=== PATIENT | male | born 1940 | race Caucasian/White ===

== ENCOUNTER 2019-03-12 12:49 | Inpatient (IN) | payer MEDICAID ==
[2019-03-12 12:51] VITALS: BMI 23.6
--- NOTE | 2019-03-12 13:50 | ED PDOC ---
Arrival/HPI - General Chief Complaint: Abdominal Pain Historian: Spouse () - History of Present Illness Narrative History of Present Illness (Text): 03/12/19 13:56 A 78 year old male, whose past medical history includes CVA (right-side paralysis), who is accompanied by his (translates for patient), presents to the emergency department complaining of lower abdominal pain, difficulty urinating, and constipation for 2 days. Per , patient's last bowel movement was yesterday morning. states abdominal pain began around the same time, and mentions he has never had pain like this before. Patient has currently been taking Tylenol for the pain. Also, notes patient has been taking hypertension and anti-seizure medications, and was prescribed Theophylline in [place] and has been taking it. Patient, however, has no history of asthma. Denies patient of any confusion/AMS, chest pain, shortness of breath, or any other complaints at this time. PMD: Dr. Lamin Domínguez Past Medical History - Provider Review Nursing Documentation Reviewed: Yes - Infectious Disease Hx of Infectious Diseases: None - Cardiac Hx Cardiac Disorders: Yes Hx Hypertension: Yes - Pulmonary Hx Respiratory Disorders: No - Neurological HX Cerebrovascular Accident: Yes (10 yrs ago) - HEENT Hx HEENT Disorder: No - Renal Hx Renal Disorder: No - Endocrine/Metabolic Hx Endocrine Disorders: No - Hematological/Oncological Hx Blood Disorders: No - Integumentary Hx Dermatological Disorder: No - Musculoskeletal/Rheumatological Hx Musculoskeletal Disorders: No - Gastrointestinal Hx Gastrointestinal Disorders: No - Genitourinary/Gynecological Hx Genitourinary Disorders: No - Psychiatric Hx Psychophysiologic Disorder: No Hx Substance Use: No - Anesthesia Hx Anesthesia: No Hx Anesthesia Reactions: No Hx Malignant Hyperthermia: No Family/Social History - Physician Review Nursing Documentation Reviewed: Yes Family/Social History: No Known Family HX Smoking Status: Never Smoked Hx Alcohol Use: No Hx Substance Use: No Allergies/Home Meds Allergies/Adverse Reactions: Allergies No Known Allergies Allergy (Verified 03/12/19 12:51) Home Medications: Home Meds Medication Instructions Recorded Confirmed Unobtainable 03/12/19 03/12/19 Review of Systems - Physician Review All systems were reviewed & negative as marked: Yes - Review of Systems Respiratory: absent: SOB Cardiovascular: absent: Chest Pain Gastrointestinal: Abdominal Pain (lower region), Constipation, Other (difficulty urinating) Physical Exam Vital Signs Reviewed: Yes Vital Signs Temp Pulse Resp BP Pulse Ox 03/12/19 13:29 98.0 F 79 19 96 03/12/19 12:50 98.1 F 82 18 100/45 L 97 Temperature: Afebrile Blood Pressure: Normal Pulse: Regular Respiratory Rate: Normal Appearance: Positive for: Uncomfortable Pain Distress: None Mental Status: Positive for: Alert and Oriented X 3 - Systems Exam Abdomen: Present: Distention, Other (palpable pain to lower region) Rectal: Present: Other (negative hemocult) Medical Decision Making ED Course and Treatment: 03/12/19 13:58 Impression: 78 year male with lower abdominal pain, difficulty urinating, and constipation. Plan: -- EKG -- Abd/Pelvis CT -- Chest X-ray -- Pepcid -- Citrate -- Reglan -- Labs -- Urine Culture -- Urinalysis -- Reassess and disposition Progress Notes: - RAD Interpretation Narrative RAD Interpretations (Text): 03/12/2019 13:45 Chest X-ray IMPRESSION: Mild cardiomegaly and moderate vascular congestion. Dictator: Boo Herrera MD Radiology Orders: 03/12/19 13:33 CHEST PORTABLE [RAD] Stat - EKG Interpretation EKG Interpretation (Text): 03/12/19 13:44 EKG: Ordered, reviewed, and independently interpreted the EKG. Rate : 84 BPM Rhythm : NSR Interpretation : Right Bundle Branch Block, ST depression in V4-V5. Comparison : No previous EKG for comparison. - Medication Orders Current Medication Orders: Discontinued Medications Famotidine (Pepcid) 20 mg IVP STAT STA Stop: 03/12/19 13:33 Metoclopramide HCl (Reglan) 10 mg IVP STAT STA Stop: 03/12/19 13:33 - Scribe Statement The provider has reviewed the documentation as recorded by the Agnieszka Blanton Provider Scribe Attestation: All medical record entries made by the Scribe were at my direction and personally dictated by me. I have reviewed the chart and agree that the record accurately reflects my personal performance of the history, physical exam, medical decision making, and the department course for this patient. I have also personally directed, reviewed, and agree with the discharge instructions and disposition. Disposition/Present on Arrival - Present on Arrival History of DVT/PE: No History of Uncontrolled Diabetes: No Urinary Catheter: No History of Decub. Ulcer: No History Surgical Site Infection Following: None - Disposition
[2019-03-12] MEDS ORDERED: Magnesium Citrate Oral SOL (300 ml) PO ONE (13:53)
[2019-03-12 13:55] LABS: BASO # 0.01 K/mm3 (0.0-2.0); BASO % 0.1 % (0.0-3.0); LYMPH # 0.7 (1.2-3.4); LYMPH % 5.9 % (22.0-35.0); MEAN CELL VOLUME 72.9 fl (80.0-105.0); MEAN CORPUSCULAR HEMOGLOBIN 20.2 pg (25.0-35.0); MEAN CORPUSCULAR HGB CONC 27.7 g/dl (31.0-37.0); MEAN PLATELET VOLUME 9.2 fl (7.0-11.0); MONO # 0.6 (0.1-0.6); MONO % 5.1 % (1.0-6.0); RBC 2.58 10^6/uL (3.5-6.1); RED CELL DISTRIBUTION WIDTH 19.3 % (11.5-14.5); WHITE BLOOD COUNT 12.1 10^3/uL (4.5-11.0)
[2019-03-12 14:00] LABS: HEMOGLOBIN 5.2 g/dL (14.0-18.0)
[2019-03-12 14:04] LABS: ALB/GLOB RATIO 1.2 (1.1-1.8); ALBUMIN 4.2 g/dL (3.0-4.8); ALT/SGPT 9 U/L (7-56); AMYLASE 41 U/L (35-125); AST/SGOT 22 U/L (17-59); BLOOD UREA NITROGEN 12 mg/dL (7-21); GFR NON-AFRICAN AMERICAN > 60; INR 1.21; LIPASE 112 U/L (23-300); PARTIAL THROMBOPLASTIN TIME 26.2 Seconds (26.9-38.3); PROTHROMBIN TIME 13.4 SECONDS (9.4-12.5)
--- NOTE | 2019-03-12 14:12 | RAD ---
Date of service: 03/12/2019 HISTORY: abdominal pain COMPARISON: No prior. TECHNIQUE: 1 view obtained. FINDINGS: LUNGS: No active pulmonary disease. PLEURA: No significant pleural effusion identified, no pneumothorax apparent. CARDIOVASCULAR: No aortic atherosclerotic calcification present. Mild cardiomegaly moderate vascular congestion OSSEOUS STRUCTURES: No significant abnormalities. VISUALIZED UPPER ABDOMEN: Normal. OTHER FINDINGS: None. IMPRESSION: Mild cardiomegaly and moderate vascular congestion
[2019-03-12] MEDS ORDERED: Sodium Chloride 0.9% 1,000 ML IV STA (14:17)
[2019-03-12] MEDS ORDERED: Iohexol 350 MG/100 ML VIAL ONE (14:41)
[2019-03-12 14:42] LABS: URINE APPEARANCE CLEAR (CLEAR); URINE BILIRUBIN NEGATIVE (NEGATIVE); URINE BLOOD NEGATIVE (NEGATIVE); URINE COLOR YELLOW (YELLOW); URINE GLUCOSE (UA) NEGATIVE (NEGATIVE); URINE LEUKOCYTE ESTERASE NEGATIVE Leu/uL (NEGATIVE); URINE PROTEIN NEGATIVE mg/dL (<30 mg/dL); URINE UROBILINOGEN 0.2 E.U./dL (<1 E.U./dL)
[2019-03-12] MEDS: Albuterol-Ipratrop 3 mg / 0.5 (3 ml) UD IH SCH ×3 (15:01→15:45)
[2019-03-12] MEDS ORDERED: Azithromycin 500MG/NS 250ml 500 MG/250 ML BAG IVPB STA (15:11)
[2019-03-12] MEDS ORDERED: cefTRIAXone 1 gm 1 GM/100 ML BAG IVPB STA (15:11)
--- NOTE | 2019-03-12 16:49 | CT ---
Date of service: 03/12/2019 PROCEDURE: CT Abdomen and Pelvis with contrast HISTORY: abdominal pain COMPARISON: None. TECHNIQUE: Contrast dose: 100 cc of Omni 350 Radiation dose: Total exam DLP = 716.39 mGy-cm. This CT exam was performed using one or more of the following dose reduction techniques: Automated exposure control, adjustment of the mA and/or kV according to patient size, and/or use of iterative reconstruction technique. FINDINGS: LOWER THORAX: Small pleural effusions LIVER: There is an irregular hypodense lesion in the lateral segment of the left lobe of the liver along the lateral edge. This measures 29 x 35 mm in size. This could represent a hemangioma. Clinical correlation is suggested regarding history of a primary malignancy. Follow-up is recommended GALLBLADDER AND BILE DUCTS: Unremarkable. PANCREAS: Unremarkable. No gross lesion or ductal dilatation. SPLEEN: Unremarkable. ADRENALS: Unremarkable. No mass. KIDNEYS AND URETERS: Unremarkable. No hydronephrosis. No solid mass. VASCULATURE: Unremarkable. No aortic aneurysm. No aortic atherosclerotic calcification or mural plaque present. BOWEL: Bilateral inguinal hernias are seen. The right-sided inguinal hernia contains a loop of small bowel. This appears to be producing partial obstruction. Mildly dilated fluid-filled loops of small bowel are seen proximal to this hernia. The left-sided hernia contains a loop of the sigmoid colon with no evidence of obstruction. Each hernia measures approximately 5 cm in diameter APPENDIX: Normal appendix. PERITONEUM: Unremarkable. No free fluid. No free air. LYMPH NODES: Unremarkable. No enlarged lymph nodes. BLADDER: Unremarkable. REPRODUCTIVE: Unremarkable. BONES: No acute fracture. OTHER FINDINGS: None. IMPRESSION: Bilateral inguinal hernias are seen. The right-sided inguinal hernia contains a loop of small bowel. This appears to be producing partial obstruction. Mildly dilated fluid-filled loops of small bowel are seen proximal to this hernia. The left-sided hernia contains a loop of the sigmoid colon with no evidence of obstruction. Each hernia measures approximately 5 cm in diameter There is an irregular hypodense lesion in the lateral segment of the left lobe of the liver along the lateral edge. This measures 29 x 35 mm in size. This could represent a hemangioma. Clinical correlation is suggested regarding history of a primary malignancy. Follow-up is recommended
--- NOTE | 2019-03-12 17:37 | CP.PCM.HP ---
History of Present Illness - History of Present Illness History of Present Illness: Joey Maldonado DO, PGY-2: HPI for Dr. 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 He is accompanied by his daughter in law who provides most of the chief compla int and past medical history. The pain is in the right side of his abdomen is intermittent, scaled 7/10 in severity, crampy in nature, not associated with vomiting, nausea, or diarrhea; ongoing since his constipation. The patient denied having any fever, chills, shortness of breath, exposure to any sick contact. Also, he has had difficulty urinating in the past 24 hours. He denies dysuria and felt reliefed when straight cathed in the ED. He does report having bloody bowel movements 2 weeks ago that resolved spontaneously. He denied feeling any palpitations, shortness or breath, or malaise. He can only walk with the assistance of one person + walker/cane. He lives with his daughter and son that that reside in [place] and [place], respectively. Otherwise, a 12 point ROS is negative except as mentioned above. PMH: Hemorrhagic stroke in 2004 with right sided hemiplegia, hypertension, former smoker and former drinker PSH: Denies Allergies: Denies Social: 50 pack year history of smoker, drank heavily in the past- unable to quantify, needs assistance for ADLs PMD: Dr Lamin Domínguez Present on Admission - Present on Admission Any Indicators Present on Admission: No Review of Systems - Review of Systems All systems: reviewed and no additional remarkable complaints except (as per HPI) Past Patient History - Infectious Disease Hx of Infectious Diseases: None - Past Social History Smoking Status: Never Smoked - CARDIAC Hx Cardiac Disorders: Yes Hx Hypertension: Yes - PULMONARY Hx Respiratory Disorders: No - NEUROLOGICAL HX Cerebrovascular Accident: Yes (10 yrs ago) - HEENT Hx HEENT Problems: No - RENAL Hx Chronic Kidney Disease: No - ENDOCRINE/METABOLIC Hx Endocrine Disorders: No - HEMATOLOGICAL/ONCOLOGICAL Hx Blood Disorders: No - INTEGUMENTARY Hx Dermatological Problems: No - MUSCULOSKELETAL/RHEUMATOLOGICAL Hx Musculoskeletal Disorders: No - GASTROINTESTINAL Hx Gastrointestinal Disorders: No - GENITOURINARY/GYNECOLOGICAL Hx Genitourinary Disorders: No - PSYCHIATRIC Hx Psychophysiologic Disorder: No Hx Substance Use: No - SURGICAL HISTORY Hx Surgeries: No - ANESTHESIA Hx Anesthesia: No Hx Anesthesia Reactions: No Hx Malignant Hyperthermia: No Meds Allergies/Adverse Reactions: Allergies Allergy/AdvReac Type Severity Reaction Status Date / Time No Known Allergies Allergy Verified 03/12/19 12:51 Physical Exam - Constitutional Appears: Non-toxic, No Acute Distress - Head Exam Head Exam: ATRAUMATIC, NORMOCEPHALIC - Eye Exam Eye Exam: EOMI Additional comments: conjuctival pallor - ENT Exam ENT Exam: Mucous Membranes Moist - Respiratory Exam Respiratory Exam: Clear to Auscultation Bilateral, NORMAL BREATHING PATTERN. absent: Accessory Muscle Use Additional comments: coarse breath sounds bilaterally - Cardiovascular Exam Cardiovascular Exam: RRR, +S1, +S2 - GI/Abdominal Exam GI & Abdominal Exam: absent: Rebound, Rigid Additional comments: right abdomen protruding, bilateral inguinal hernia noted - Extremities Exam Extremities exam: Positive for: normal inspection. Negative for: calf tenderness - Neurological Exam Additional comments: right hemiplegia, left foot with foot drop brace - Psychiatric Exam Psychiatric exam: Normal Affect, Normal Mood - Skin Skin Exam: Dry, Intact, Normal Color, Warm Results - Vital Signs Recent Vital Signs: Last Vital Signs Temp 98.0 F 03/12/19 13:29 Pulse 87 03/12/19 17:10 Resp 18 03/12/19 17:10 BP 102/54 L 03/12/19 17:10 Pulse Ox 99 03/12/19 17:10 - Labs Result Diagrams: 03/12/19 13:50 03/12/19 13:50 Labs: Laboratory Results - last 24 hr 03/12/19 03/12/19 03/12/19 13:50 13:50 13:50 WBC 12.1 H RBC 2.58 L Hgb 5.2 L* Hct 18.8 L* MCV 72.9 L MCH 20.2 L MCHC 27.7 L RDW 19.3 H Plt Count 327 MPV 9.2 Neut % (Auto) 88.9 H Lymph % (Auto) 5.9 L Dare % (Auto) 5.1 Eos % (Auto) 0.0 L Baso % (Auto) 0.1 Lymph # (Auto) 0.7 L Dare # (Auto) 0.6 Eos # (Auto) 0.0 Baso # (Auto) 0.01 Absolute Neuts (auto) 10.79 H PT 13.4 H INR 1.21 APTT 26.2 L Sodium 132 Potassium 4.0 Chloride 99 Carbon Dioxide 17 L Anion Gap 21 H BUN 12 Creatinine 0.7 L Est GFR ( Amer) > 60 Est GFR (Non-Af Amer) > 60 Random Glucose 133 H Calcium 9.0 Total Bilirubin 0.3 AST 22 ALT 9 Alkaline Phosphatase 81 NT-Pro-B Natriuret Pep Total Protein 7.6 Albumin 4.2 Globulin 3.5 Albumin/Globulin Ratio 1.2 Amylase 41 Lipase 112 Urine Color Urine Appearance Urine pH Ur Specific [place] Urine Protein Urine Glucose (UA) Urine Ketones Urine Blood Urine Nitrate Urine Bilirubin Urine Urobilinogen Ur Leukocyte Esterase Blood Type Blood Type Confirm Antibody Screen Crossmatch BBK History Checked 03/12/19 03/12/19 03/12/19 13:50 14:30 14:30 WBC RBC Hgb Hct MCV MCH MCHC RDW Plt Count MPV Neut % (Auto) Lymph % (Auto) Dare % (Auto) Eos % (Auto) Baso % (Auto) Lymph # (Auto) Dare # (Auto) Eos # (Auto) Baso # (Auto) Absolute Neuts (auto) PT INR APTT Sodium Potassium Chloride Carbon Dioxide Anion Gap BUN Creatinine Est GFR ( Amer) Est GFR (Non-Af Amer) Random Glucose Calcium Total Bilirubin AST ALT Alkaline Phosphatase NT-Pro-B Natriuret Pep 6360 H Total Protein Albumin Globulin Albumin/Globulin Ratio Amylase Lipase Urine Color Yellow Urine Appearance Clear Urine pH 6.0 Ur Specific [place] 1.025 Urine Protein Negative Urine Glucose (UA) Negative Urine Ketones Negative Urine Blood Negative Urine Nitrate Negative Urine Bilirubin Negative Urine Urobilinogen 0.2 Ur Leukocyte Esterase Negative Blood Type A POSITIVE Blood Type Confirm Antibody Screen Negative Crossmatch See Detail BBK History Checked No verified bt 03/12/19 15:20 WBC RBC Hgb Hct MCV MCH MCHC RDW Plt Count MPV Neut % (Auto) Lymph % (Auto) Dare % (Auto) Eos % (Auto) Baso % (Auto) Lymph # (Auto) Dare # (Auto) Eos # (Auto) Baso # (Auto) Absolute Neuts (auto) PT INR APTT Sodium Potassium Chloride Carbon Dioxide Anion Gap BUN Creatinine Est GFR ( Amer) Est GFR (Non-Af Amer) Random Glucose Calcium Total Bilirubin AST ALT Alkaline Phosphatase NT-Pro-B Natriuret Pep Total Protein Albumin Globulin Albumin/Globulin Ratio Amylase Lipase Urine Color Urine Appearance Urine pH Ur Specific [place] Urine Protein Urine Glucose (UA) Urine Ketones Urine Blood Urine Nitrate Urine Bilirubin Urine Urobilinogen Ur Leukocyte Esterase Blood Type Blood Type Confirm A POSITIVE Antibody Screen Crossmatch BBK History Checked Assessment & Plan - Assessment and Plan (Free Text) Assessment: 78 year old male with a past medical history of hypertension, hemorrhagic stroke with right sided hemiplegia, and possible CHF who presents with right sided abdominal and right thigh pain in the setting of constipation. 1) Abdominal pain secondary to partial obstruction - CT of abdominal and pelvis reports bilateral inguinal hernias are seen. The right-sided inguinal hernia contains a loop of small bowel. This appears to be producing partial obstruction. Mildly dilated fluid-filled loops of small bowel are seen proximal to this hernia. The left-sided hernia contains a loop of the sigmoid colon with no evidence of obstruction. Each hernia measures approximately 5 cm in diameter. There is an irregular hypodense lesion in the lateral segment of the left lobe of the liver along the lateral edge. This measures 29 x 35 mm in size. This could represent a hemangioma. Clinical correlation is suggested regarding history of a primary malignancy. Follow-up is recommended - General Surgery Consulted - Keep patient NPO except for meds - Hernias were reducible 2) Recent LGIB with anemia - Hemoglobin 5.2 - Transfuse 2 units and repeat CBC - GI consulted, Dr. Guevara 3) CHF exacerbation - Elevated BNP and chest X-ray showing venous congestion and cardiomegaly - Dr. Espinosa consulted - Echocardiogram ordered - Nebivolol 5 mg (home medication) 4) History of Seizures - Continue with Phenytoin 100 mg Daily (home medication) 5) Hypertension - Amlodipine 10 mg 6) DVT/GI prophylaxis - SCD - Protonix 40 mg IVP daily Case was reviewed and discussed with attending physician, Dr. Armstrong
--- NOTE | 2019-03-12 17:42 | CARD ---
APPROVED REPORT Date of service: 03/12/2019 EKG Measurement Heart [id number] <Conclusion> Normal sinus rhythm Right bundle branch block Left anterior fascicular block Bifascicular block T wave abnormality, consider lateral ischemia Abnormal ECG
--- NOTE | 2019-03-12 18:08 | CP.PCM.CON ---
History of Present Illness - History of Present Illness History of Present Illness: General surgery consult note for Dr. Etta Robledo PGY-2 Pt seen/examined at bedside in ED, history as per daughter in law 78yo Shorty speaking male w/PMH sig for CVA w/R sided hemiparesis and HTN consulted for abdominal pain, constipation, and partial obstruction. Per daughter in law, patient has been constipated for 3 days prior to evaluation, is having small, hard, non bloody BMs. Admits to prior bloody BMs 2 weeks prior to evaluation that lasted for 2 days, which has since resolved. Denies flatus x 1 day. Reports moderate R sided abdominal pain x 1 day prior to evaluation that radiated down his leg, pt now reporting that abdominal pain as resolved. Patient has been eating decreased amounts for the past 3 days. On day of admission, pt had urinary rention requiring straight catheterization with resulting UOP of 30c c. Denies nausea and vomiting, fevers, chills, new weakness, SOB, CP, dizziness, CORMIER. In ED- pt with Hgb 5.2, currently receving pRBCs. BNP 6360. Lipase WNL (112). WBC 12.1 PMH: CVA w/R sided hemiparesis, HTN. Never had a colonoscopy. 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 Moved from [facility] to in 2017. FH: Mother had CVA, father had hernias PMD: Dr Lamin Domínguez in [place] Review of Systems - Review of Systems All systems: reviewed and no additional remarkable complaints except - Constitutional Constitutional: absent: Chills, Fever - EENT Ears: absent: Dizziness - Cardiovascular Cardiovascular: absent: Chest Pain - Gastrointestinal Gastrointestinal: Abdominal Pain, Constipation. absent: Hematemesis, Hematochezia, Melena, Nausea, Vomiting - Genitourinary Genitourinary: Change in Urinary Stream, Difficulty Urinating, Urinary Hesitance - Musculoskeletal Musculoskeletal: absent: Back Pain - Integumentary Integumentary: absent: New Lesions - Neurological Neurological: absent: Dizziness, Weakness Past Patient History - Infectious Disease Hx of Infectious Diseases: None - Past Social History Smoking Status: Never Smoked - CARDIAC Hx Cardiac Disorders: Yes Hx Hypertension: Yes - PULMONARY Hx Respiratory Disorders: No - NEUROLOGICAL HX Cerebrovascular Accident: Yes (10 yrs ago) - HEENT Hx HEENT Problems: No - RENAL Hx Chronic Kidney Disease: No - ENDOCRINE/METABOLIC Hx Endocrine Disorders: No - HEMATOLOGICAL/ONCOLOGICAL Hx Blood Disorders: No - INTEGUMENTARY Hx Dermatological Problems: No - MUSCULOSKELETAL/RHEUMATOLOGICAL Hx Musculoskeletal Disorders: No - GASTROINTESTINAL Hx Gastrointestinal Disorders: No - GENITOURINARY/GYNECOLOGICAL Hx Genitourinary Disorders: No - PSYCHIATRIC Hx Psychophysiologic Disorder: No Hx Substance Use: No - SURGICAL HISTORY Hx Surgeries: No - ANESTHESIA Hx Anesthesia: No Hx Anesthesia Reactions: No Hx Malignant Hyperthermia: No Meds Allergies/Adverse Reactions: Allergies Allergy/AdvReac Type Severity Reaction Status Date / Time No Known Allergies Allergy Verified 03/12/19 12:51 - Medications Medications: Current Medications Furosemide (Lasix) 40 mg IVP ONCE ONE Stop: 03/12/19 19:01 Physical Exam - Constitutional Appears: Non-toxic, No Acute Distress - Head Exam Head Exam: ATRAUMATIC, NORMAL INSPECTION, NORMOCEPHALIC - Eye Exam Eye Exam: EOMI, Normal appearance - ENT Exam ENT Exam: absent: Normal Exam (Edentulous) - Neck Exam Neck exam: Positive for: Full Rom - Respiratory Exam Respiratory Exam: Clear to Auscultation Bilateral, NORMAL BREATHING PATTERN - Cardiovascular Exam Cardiovascular Exam: REGULAR RHYTHM, +S1, +S2 - GI/Abdominal Exam GI & Abdominal Exam: Hernia (Umbilical, bilateral reducible inguinal hernias- non tender), Soft, Tenderness (mild, over RLQ). absent: Distended (obese), Firm, Guarding, Rebound, Rigid - Rectal Exam Rectal Exam: Deferred (already had ANDRES by ED dr- reported to be positive for bloody stool) - Extremities Exam Extremities exam: Negative for: normal inspection (Right LE with brace in place) - Neurological Exam Neurological exam: Alert, Oriented x3 - Psychiatric Exam Psychiatric exam: Normal Affect, Normal Mood - Skin Skin Exam: Dry, Intact, Normal Color, Warm Results - Vital Signs Recent Vital Signs: Last Vital Signs Temp 98.3 F 03/12/19 17:51 Pulse 97 H 03/12/19 17:51 Resp 18 03/12/19 17:51 BP 95/54 L 03/12/19 17:51 Pulse Ox 99 03/12/19 17:10 - Labs Result Diagrams: 03/12/19 13:50 03/12/19 13:50 Labs: Laboratory Results - last 24 hr 03/12/19 03/12/19 03/12/19 13:50 13:50 13:50 WBC 12.1 H RBC 2.58 L Hgb 5.2 L* Hct 18.8 L* MCV 72.9 L MCH 20.2 L MCHC 27.7 L RDW 19.3 H Plt Count 327 MPV 9.2 Neut % (Auto) 88.9 H Lymph % (Auto) 5.9 L Sharkey % (Auto) 5.1 Eos % (Auto) 0.0 L Baso % (Auto) 0.1 Lymph # (Auto) 0.7 L Sharkey # (Auto) 0.6 Eos # (Auto) 0.0 Baso # (Auto) 0.01 Absolute Neuts (auto) 10.79 H PT 13.4 H INR 1.21 APTT 26.2 L Sodium 132 Potassium 4.0 Chloride 99 Carbon Dioxide 17 L Anion Gap 21 H BUN 12 Creatinine 0.7 L Est GFR ( Amer) > 60 Est GFR (Non-Af Amer) > 60 Random Glucose 133 H Calcium 9.0 Total Bilirubin 0.3 AST 22 ALT 9 Alkaline Phosphatase 81 NT-Pro-B Natriuret Pep Total Protein 7.6 Albumin 4.2 Globulin 3.5 Albumin/Globulin Ratio 1.2 Amylase 41 Lipase 112 Urine Color Urine Appearance Urine pH Ur Specific [place] Urine Protein Urine Glucose (UA) Urine Ketones Urine Blood Urine Nitrate Urine Bilirubin Urine Urobilinogen Ur Leukocyte Esterase Blood Type Blood Type Confirm Antibody Screen Crossmatch BBK History Checked 03/12/19 03/12/19 03/12/19 13:50 14:30 14:30 WBC RBC Hgb Hct MCV MCH MCHC RDW Plt Count MPV Neut % (Auto) Lymph % (Auto) Sharkey % (Auto) Eos % (Auto) Baso % (Auto) Lymph # (Auto) Sharkey # (Auto) Eos # (Auto) Baso # (Auto) Absolute Neuts (auto) PT INR APTT Sodium Potassium Chloride Carbon Dioxide Anion Gap BUN Creatinine Est GFR ( Amer) Est GFR (Non-Af Amer) Random Glucose Calcium Total Bilirubin AST ALT Alkaline Phosphatase NT-Pro-B Natriuret Pep 6360 H Total Protein Albumin Globulin Albumin/Globulin Ratio Amylase Lipase Urine Color Yellow Urine Appearance Clear Urine pH 6.0 Ur Specific [place] 1.025 Urine Protein Negative Urine Glucose (UA) Negative Urine Ketones Negative Urine Blood Negative Urine Nitrate Negative Urine Bilirubin Negative Urine Urobilinogen 0.2 Ur Leukocyte Esterase Negative Blood Type A POSITIVE Blood Type Confirm Antibody Screen Negative Crossmatch See Detail BBK History Checked No verified bt 03/12/19 15:20 WBC RBC Hgb Hct MCV MCH MCHC RDW Plt Count MPV Neut % (Auto) Lymph % (Auto) Sharkey % (Auto) Eos % (Auto) Baso % (Auto) Lymph # (Auto) Sharkey # (Auto) Eos # (Auto) Baso # (Auto) Absolute Neuts (auto) PT INR APTT Sodium Potassium Chloride Carbon Dioxide Anion Gap BUN Creatinine Est GFR ( Amer) Est GFR (Non-Af Amer) Random Glucose Calcium Total Bilirubin AST ALT Alkaline Phosphatase NT-Pro-B Natriuret Pep Total Protein Albumin Globulin Albumin/Globulin Ratio Amylase Lipase Urine Color Urine Appearance Urine pH Ur Specific [place] Urine Protein Urine Glucose (UA) Urine Ketones Urine Blood Urine Nitrate Urine Bilirubin Urine Urobilinogen Ur Leukocyte Esterase Blood Type Blood Type Confirm A POSITIVE Antibody Screen Crossmatch BBK History Checked Assessment & Plan - Assessment and Plan (Free Text) Assessment: 78M w/acute anemia consulted for B/L reducible inguinal hernias Plan: Transfuse blood PRN NPO NGT to low continuous wall suction Monitor intake/output Recommend GI consult for possible colonoscopy/endoscopy Bilateral hernias currently reducible Recommend elective evaluation of hernias for possible repair after stabilization and prioritization of acute anemia LISSY Robledo, PGY-2 - Date & Time Date: 03/12/19 Time: 18:06
[2019-03-12 23:01] LABS: MEAN CORPUSCULAR HEMOGLOBIN 22.1 pg (25.0-35.0); MEAN CORPUSCULAR HGB CONC 29.9 g/dl (31.0-37.0); MEAN PLATELET VOLUME 8.8 fl (7.0-11.0); RBC 3.12 10^6/uL (3.5-6.1); RED CELL DISTRIBUTION WIDTH 19.5 % (11.5-14.5); WHITE BLOOD COUNT 10.2 10^3/uL (4.5-11.0)
[2019-03-12 23:14] LABS: HEMOGLOBIN 6.9 g/dL (14.0-18.0)
[2019-03-13] MEDS: Lactated Ringer's 1,000 ML IV SCH ×3 (02:40→12:06)
[2019-03-13 03:55] LABS: BASO # 0.02 K/mm3 (0.0-2.0); BASO % 0.2 % (0.0-3.0); EOS % 0.1 % (1.5-5.0); LYMPH # 1.1 (1.2-3.4); LYMPH % 10.4 % (22.0-35.0); MEAN CELL VOLUME 75.2 fl (80.0-105.0); MEAN CORPUSCULAR HEMOGLOBIN 23.1 pg (25.0-35.0); MEAN CORPUSCULAR HGB CONC 30.7 g/dl (31.0-37.0); MEAN PLATELET VOLUME 9.5 fl (7.0-11.0); MONO # 0.7 (0.1-0.6); MONO % 6.6 % (1.0-6.0); RBC 3.47 10^6/uL (3.5-6.1); RED CELL DISTRIBUTION WIDTH 19.7 % (11.5-14.5); WHITE BLOOD COUNT 10.2 10^3/uL (4.5-11.0)
[2019-03-13 04:08] LABS: ALB/GLOB RATIO 1.1 (1.1-1.8); ALBUMIN 3.9 g/dL (3.0-4.8); ALT/SGPT 13 U/L (7-56); AST/SGOT 19 U/L (17-59); BLOOD UREA NITROGEN 11 mg/dL (7-21); CALCIUM 8.4 mg/dL (8.4-10.5); GFR NON-AFRICAN AMERICAN > 60
[2019-03-13 04:42] LABS: TROPONIN I 0.53 ng/mL
--- NOTE | 2019-03-13 07:49 | CP.PCM.CON ---
<Javi Salas - Last Filed: 03/13/19 12:58> History of Present Illness - History of Present Illness History of Present Illness: PGY4 GI fellow consult note Following obtained from chart review, hospital staff and interpretation via daughter due to patient being Shorty speaking. Patient is a 78-year-old [place] male with a past medical history of CVA (with residual right hemiparesis), hypertension, history of seizures presenting with abdominal pain. Patient reports some right-sided lower abdominal pain with radiation down the leg for the last day or so. Reports history of constipation with multiple days of hard stools. Transiently in the weeks prior noted some bloody bowel movements that have since self resolved. There is also reports of no BM or flatus for at least the last 24 hours prior to presentation. Imaging done in the ED was significant for abdominal pelvis CT with IV contrast only revealing bilateral inguinal hernias with right partial obstruction as well as hypodense lesion in the liver. No prior endoscopic evaluations. This morning during my encounter, patient reports soft blackish-brown bowel movement as well as mild right lower quadrant pain. Denied any weight loss, dysphagia, melena, hematochezia. 12 point review systems negative other than stated above No prior colonoscopy or endoscopy. Medical history: See above Surgical history: Brain surgery? Medications: Reviewed Family history: CVA, hernia Social history: Former [id number] tobacco smoker, history of tobacco abuse (unclear details), denies illicits Allergies: No known drug allergies Past Patient History - Infectious Disease Hx of Infectious Diseases: None - Past Social History Smoking Status: Never Smoked - CARDIAC Hx Cardiac Disorders: Yes Hx Hypertension: Yes - PULMONARY Hx Respiratory Disorders: No - NEUROLOGICAL HX Cerebrovascular Accident: Yes (10 yrs ago) - HEENT Hx HEENT Problems: No - RENAL Hx Chronic Kidney Disease: No - ENDOCRINE/METABOLIC Hx Endocrine Disorders: No - HEMATOLOGICAL/ONCOLOGICAL Hx Blood Disorders: No - INTEGUMENTARY Hx Dermatological Problems: No - MUSCULOSKELETAL/RHEUMATOLOGICAL Hx Musculoskeletal Disorders: No - GASTROINTESTINAL Hx Gastrointestinal Disorders: No - GENITOURINARY/GYNECOLOGICAL Hx Genitourinary Disorders: No - PSYCHIATRIC Hx Psychophysiologic Disorder: No Hx Substance Use: No - SURGICAL HISTORY Hx Surgeries: No - ANESTHESIA Hx Anesthesia: No Hx Anesthesia Reactions: No Hx Malignant Hyperthermia: No Meds Allergies/Adverse Reactions: Allergies Allergy/AdvReac Type Severity Reaction Status Date / Time No Known Allergies Allergy Verified 03/12/19 12:51 - Medications Medications: Current Medications Amlodipine Besylate (Norvasc) 10 mg PO DAILY [facility] Home Med (Home Med) 1 unit PO DAILY [facility] Home Med (Home Med) 1 unit PO DAILY [facility] Lactated Ringer's (Lactated Ringer's) 1,000 mls @ 115 mls/hr IV .[id number] [facility] Last Admin: 03/13/19 05:00 Dose: 115 mls/hr Pantoprazole Sodium (Protonix Inj) 40 mg IVP BID [facility] Physical Exam - Constitutional Appears: Well, No Acute Distress, Chronically Ill - Head Exam Head Exam: ATRAUMATIC, NORMAL INSPECTION - Eye Exam Eye Exam: EOMI. absent: Scleral icterus - ENT Exam ENT Exam: Mucous Membranes Moist. absent: Mucous Membranes Dry - Respiratory Exam Respiratory Exam: Wheezes (faint scattered), NORMAL BREATHING PATTERN. absent: Accessory Muscle Use - Cardiovascular Exam Cardiovascular Exam: REGULAR RHYTHM, RRR - GI/Abdominal Exam GI & Abdominal Exam: Normal Bowel Sounds, Soft, Tenderness (mildly tender to pa lpation in right lower quadrant without guarding). absent: Bruit, Diminished Bowel Sounds, Distended, Firm, Guarding, Hernia, Mass, Organomegaly, Pulsatile Mass, Rebound, Rigid - Rectal Exam Rectal Exam: Hemorrhoids Additional comments: multiple external nonthrombosed hemorrhoids, stool light brown on ANDRES, possible soft lesion palpated in rectal wall (hemorrhoids versus mass versus other) - Neurological Exam Neurological exam: Alert Additional comments: not altered, right hemiparesis - Psychiatric Exam Psychiatric exam: Normal Affect, Normal Mood - Skin Skin Exam: Normal Color, Warm Results - Vital Signs Recent Vital Signs: Last Vital Signs Temp 98.1 F 03/13/19 07:03 Pulse 84 03/13/19 07:03 Resp 20 03/13/19 07:03 BP 110/58 L 03/13/19 07:03 Pulse Ox 95 03/13/19 06:00 - Labs Result Diagrams: 03/13/19 03:35 03/13/19 03:35 Labs: Laboratory Results - last 24 hr 03/12/19 03/12/19 03/12/19 13:50 13:50 13:50 WBC 12.1 H RBC 2.58 L Hgb 5.2 L* Hct 18.8 L* MCV 72.9 L MCH 20.2 L MCHC 27.7 L RDW 19.3 H Plt Count 327 MPV 9.2 Neut % (Auto) 88.9 H Lymph % (Auto) 5.9 L Falls % (Auto) 5.1 Eos % (Auto) 0.0 L Baso % (Auto) 0.1 Lymph # (Auto) 0.7 L Falls # (Auto) 0.6 Eos # (Auto) 0.0 Baso # (Auto) 0.01 Absolute Neuts (auto) 10.79 H PT 13.4 H INR 1.21 APTT 26.2 L Sodium 132 Potassium 4.0 Chloride 99 Carbon Dioxide 17 L Anion Gap 21 H BUN 12 Creatinine 0.7 L Est GFR ( Amer) > 60 Est GFR (Non-Af Amer) > 60 Random Glucose 133 H Calcium 9.0 Magnesium Total Bilirubin 0.3 AST 22 ALT 9 Alkaline Phosphatase 81 Troponin I NT-Pro-B Natriuret Pep Total Protein 7.6 Albumin 4.2 Globulin 3.5 Albumin/Globulin Ratio 1.2 Amylase 41 Lipase 112 Urine Color Urine Appearance Urine pH Ur Specific [place] Urine Protein Urine Glucose (UA) Urine Ketones Urine Blood Urine Nitrate Urine Bilirubin Urine Urobilinogen Ur Leukocyte Esterase Blood Type Blood Type Confirm Antibody Screen Crossmatch BBK History Checked 03/12/19 03/12/19 03/12/19 13:50 14:30 14:30 WBC RBC Hgb Hct MCV MCH MCHC RDW Plt Count MPV Neut % (Auto) Lymph % (Auto) Falls % (Auto) Eos % (Auto) Baso % (Auto) Lymph # (Auto) [place] # (Auto) Eos # (Auto) Baso # (Auto) Absolute Neuts (auto) PT INR APTT Sodium Potassium Chloride Carbon Dioxide Anion Gap BUN Creatinine Est GFR ( Amer) Est GFR (Non-Af Amer) Random Glucose Calcium Magnesium Total Bilirubin AST ALT Alkaline Phosphatase Troponin I NT-Pro-B Natriuret Pep 6360 H Total Protein Albumin Globulin Albumin/Globulin Ratio Amylase Lipase Urine Color Yellow Urine Appearance Clear Urine pH 6.0 Ur Specific [place] 1.025 Urine Protein Negative Urine Glucose (UA) Negative Urine Ketones Negative Urine Blood Negative Urine Nitrate Negative Urine Bilirubin Negative Urine Urobilinogen 0.2 Ur Leukocyte Esterase Negative Blood Type A POSITIVE Blood Type Confirm Antibody Screen Negative Crossmatch See Detail BBK History Checked No verified bt 03/12/19 03/12/19 03/12/19 15:20 22:55 22:55 WBC 10.2 RBC 3.12 L Hgb 6.9 L* Hct 23.1 L MCV 74.0 L MCH 22.1 L MCHC 29.9 L RDW 19.5 H Plt Count 278 MPV 8.8 Neut % (Auto) Lymph % (Auto) Falls % (Auto) Eos % (Auto) Baso % (Auto) Lymph # (Auto) [place] # (Auto) Eos # (Auto) Baso # (Auto) Absolute Neuts (auto) PT INR APTT Sodium Potassium Chloride Carbon Dioxide Anion Gap BUN Creatinine Est GFR ( Amer) Est GFR (Non-Af Amer) Random Glucose Calcium Magnesium Total Bilirubin AST ALT Alkaline Phosphatase Troponin I 0.22 H* NT-Pro-B Natriuret Pep Total Protein Albumin Globulin Albumin/Globulin Ratio Amylase Lipase Urine Color Urine Appearance Urine pH Ur Specific [place] Urine Protein Urine Glucose (UA) Urine Ketones Urine Blood Urine Nitrate Urine Bilirubin Urine Urobilinogen Ur Leukocyte Esterase Blood Type Blood Type Confirm A POSITIVE Antibody Screen Crossmatch BBK History Checked 03/13/19 03/13/19 03:35 03:35 WBC 10.2 RBC 3.47 L Hgb 8.0 L Hct 26.1 L MCV 75.2 L MCH 23.1 L MCHC 30.7 L RDW 19.7 H Plt Count 279 MPV 9.5 Neut % (Auto) 82.7 H Lymph % (Auto) 10.4 L Falls % (Auto) 6.6 H Eos % (Auto) 0.1 L Baso % (Auto) 0.2 Lymph # (Auto) 1.1 L [place] # (Auto) 0.7 H Eos # (Auto) 0.0 Baso # (Auto) 0.02 Absolute Neuts (auto) 8.47 H PT INR APTT Sodium 136 Potassium 3.8 Chloride 102 Carbon Dioxide 21 Anion Gap 17 BUN 11 Creatinine 0.7 L Est GFR ( Amer) > 60 Est GFR (Non-Af Amer) > 60 Random Glucose 126 H Calcium 8.4 Magnesium 2.3 H Total Bilirubin 1.2 AST 19 ALT 13 Alkaline Phosphatase 93 Troponin I 0.53 H* D NT-Pro-B Natriuret Pep Total Protein 7.4 Albumin 3.9 Globulin 3.5 Albumin/Globulin Ratio 1.1 Amylase Lipase Urine Color Urine Appearance Urine pH Ur Specific [place] Urine Protein Urine Glucose (UA) Urine Ketones Urine Blood Urine Nitrate Urine Bilirubin Urine Urobilinogen Ur Leukocyte Esterase Blood Type Blood Type Confirm Antibody Screen Crossmatch BBK History Checked Assessment & Plan - Assessment and Plan (Free Text) Assessment: 78-year-old [place] male with past medical history of CVA, hypertension, history of seizures presenting with abdominal pain and anemia. #Acute microcytic anemia: Hemoglobin 5.2 with an MCV of 72.9. Unclear baseline. Hemodynamically stable without any prior endoscopic evaluations. Some reports of transient bright red blood per rectum in the weeks prior. No signs of upper GI bleed at this time. CT scan with large stool burden. Possible stercoral oral ulceration, diverticulosis, malignancy associated bleeding with possible mass felt on ANDRES #Liver lesion: Seen on admission CT scan with IV contrast only. Suspect hemangioma #Bilateral inguinal hernias: Right with partial small bowel obstruction. General surgery following. Patient currently nothing by mouth. #NSTEMI:troponin 0.2 to uptrending to 0.53. Cardiology consulted. #History of CVA: Right hemiparesis. Plan: Clear liquid diet -Plan for EGD and colonoscopy on Wednesday or pending clinical course and cardiac evaluation Continue PPI BID for now -Monitor labs Patient seen and examined with Dr. Dejesus. Please see attestation for further recommendations/changes. portions of this note have been dictated but not necessarily proofread <Gloria Dejesus - Last Filed: 03/13/19 13:10> Meds - Medications Medications: Current Medications Amlodipine Besylate (Norvasc) 10 mg PO DAILY [facility] Last Admin: 03/13/19 12:33 Dose: Not Given Home Med (Home Med) 1 unit PO DAILY [facility] Last Admin: 03/13/19 12:11 Dose: Not Given Home Med (Home Med) 1 unit PO DAILY [facility] Last Admin: 03/13/19 12:11 Dose: Not Given Lactated Ringer's (Lactated Ringer's) 1,000 mls @ 50 mls/hr IV .Q20H [facility] Last Admin: 03/13/19 12:06 Dose: Not Given Pantoprazole Sodium (Protonix Inj) 40 mg IVP BID [facility] Last Admin: 03/13/19 12:33 Dose: 40 mg Results - Vital Signs Recent Vital Signs: Last Vital Signs Temp 98.1 F 03/13/19 07:03 Pulse 84 03/13/19 07:03 Resp 20 03/13/19 07:03 BP 110/58 L 03/13/19 07:03 Pulse Ox 95 03/13/19 06:00 - Labs Result Diagrams: 03/13/19 03:35 03/13/19 03:35 Labs: Laboratory Results - last 24 hr 03/12/19 03/12/19 03/12/19 13:50 13:50 13:50 WBC 12.1 H RBC 2.58 L Hgb 5.2 L* Hct 18.8 L* MCV 72.9 L MCH 20.2 L MCHC 27.7 L RDW 19.3 H Plt Count 327 MPV 9.2 Neut % (Auto) 88.9 H Lymph % (Auto) 5.9 L Falls % (Auto) 5.1 Eos % (Auto) 0.0 L Baso % (Auto) 0.1 Lymph # (Auto) 0.7 L [place] # (Auto) 0.6 Eos # (Auto) 0.0 Baso # (Auto) 0.01 Absolute Neuts (auto) 10.79 H PT 13.4 H INR 1.21 APTT 26.2 L Sodium 132 Potassium 4.0 Chloride 99 Carbon Dioxide 17 L Anion Gap 21 H BUN 12 Creatinine 0.7 L Est GFR ( Amer) > 60 Est GFR (Non-Af Amer) > 60 Random Glucose 133 H Hemoglobin A1c Calcium 9.0 Magnesium Iron TIBC % Saturation Total Bilirubin 0.3 AST 22 ALT 9 Alkaline Phosphatase 81 Troponin I NT-Pro-B Natriuret Pep Total Protein 7.6 Albumin 4.2 Globulin 3.5 Albumin/Globulin Ratio 1.2 Triglycerides Cholesterol LDL Cholesterol Direct HDL Cholesterol Amylase 41 Lipase 112 TSH 3rd Generation Urine Color Urine Appearance Urine pH Ur Specific [place] Urine Protein Urine Glucose (UA) Urine Ketones Urine Blood Urine Nitrate Urine Bilirubin Urine Urobilinogen Ur Leukocyte Esterase Hepatitis A IgM Ab Hep Bs Antigen Hep B Core IgM Ab Hepatitis C Antibody Blood Type Blood Type Confirm Antibody Screen Crossmatch BBK History Checked 03/12/19 03/12/19 03/12/19 13:50 14:30 14:30 WBC RBC Hgb Hct MCV MCH MCHC RDW Plt Count MPV Neut % (Auto) Lymph % (Auto) Falls % (Auto) Eos % (Auto) Baso % (Auto) Lymph # (Auto) [place] # (Auto) Eos # (Auto) Baso # (Auto) Absolute Neuts (auto) PT INR APTT Sodium Potassium Chloride Carbon Dioxide Anion Gap BUN Creatinine Est GFR ( Amer) Est GFR (Non-Af Amer) Random Glucose Hemoglobin A1c Calcium Magnesium Iron TIBC % Saturation Total Bilirubin AST ALT Alkaline Phosphatase Troponin I NT-Pro-B Natriuret Pep 6360 H Total Protein Albumin Globulin Albumin/Globulin Ratio Triglycerides Cholesterol LDL Cholesterol Direct HDL Cholesterol Amylase Lipase TSH 3rd Generation Urine Color Yellow Urine Appearance Clear Urine pH 6.0 Ur Specific [place] 1.025 Urine Protein Negative Urine Glucose (UA) Negative Urine Ketones Negative Urine Blood Negative Urine Nitrate Negative Urine Bilirubin Negative Urine Urobilinogen 0.2 Ur Leukocyte Esterase Negative Hepatitis A IgM Ab Hep Bs Antigen Hep B Core IgM Ab Hepatitis C Antibody Blood Type A POSITIVE Blood Type Confirm Antibody Screen Negative Crossmatch See Detail BBK History Checked No verified bt 03/12/19 03/12/19 03/12/19 15:20 22:55 22:55 WBC 10.2 RBC 3.12 L Hgb 6.9 L* Hct 23.1 L MCV 74.0 L MCH 22.1 L MCHC 29.9 L RDW 19.5 H Plt Count 278 MPV 8.8 Neut % (Auto) Lymph % (Auto) Falls % (Auto) Eos % (Auto) Baso % (Auto) Lymph # (Auto) [place] # (Auto) Eos # (Auto) Baso # (Auto) Absolute Neuts (auto) PT INR APTT Sodium Potassium Chloride Carbon Dioxide Anion Gap BUN Creatinine Est GFR ( Amer) Est GFR (Non-Af Amer) Random Glucose Hemoglobin A1c Calcium Magnesium Iron TIBC % Saturation Total Bilirubin AST ALT Alkaline Phosphatase Troponin I 0.22 H* NT-Pro-B Natriuret Pep Total Protein Albumin Globulin Albumin/Globulin Ratio Triglycerides Cholesterol LDL Cholesterol Direct HDL Cholesterol Amylase Lipase TSH 3rd Generation Urine Color Urine Appearance Urine pH Ur Specific [place] Urine Protein Urine Glucose (UA) Urine Ketones Urine Blood Urine Nitrate Urine Bilirubin Urine Urobilinogen Ur Leukocyte Esterase Hepatitis A IgM Ab Hep Bs Antigen Hep B Core IgM Ab Hepatitis C Antibody Blood Type Blood Type Confirm A POSITIVE Antibody Screen Crossmatch BBK History Checked 03/13/19 03/13/19 03/13/19 03:35 03:35 03:35 WBC 10.2 RBC 3.47 L Hgb 8.0 L Hct 26.1 L MCV 75.2 L MCH 23.1 L MCHC 30.7 L RDW 19.7 H Plt Count 279 MPV 9.5 Neut % (Auto) 82.7 H Lymph % (Auto) 10.4 L [place] % (Auto) 6.6 H Eos % (Auto) 0.1 L Baso % (Auto) 0.2 Lymph # (Auto) 1.1 L [place] # (Auto) 0.7 H Eos # (Auto) 0.0 Baso # (Auto) 0.02 Absolute Neuts (auto) 8.47 H PT INR APTT Sodium 136 Potassium 3.8 Chloride 102 Carbon Dioxide 21 Anion Gap 17 BUN 11 Creatinine 0.7 L Est GFR ( Amer) > 60 Est GFR (Non-Af Amer) > 60 Random Glucose 126 H Hemoglobin A1c Calcium 8.4 Magnesium 2.3 H Iron TIBC % Saturation Total Bilirubin 1.2 AST 19 ALT 13 Alkaline Phosphatase 93 Troponin I 0.53 H* D NT-Pro-B Natriuret Pep Total Protein 7.4 Albumin 3.9 Globulin 3.5 Albumin/Globulin Ratio 1.1 Triglycerides Cholesterol LDL Cholesterol Direct HDL Cholesterol Amylase Lipase TSH 3rd Generation Urine Color Urine Appearance Urine pH Ur Specific [place] Urine Protein Urine Glucose (UA) Urine Ketones Urine Blood Urine Nitrate Urine Bilirubin Urine Urobilinogen Ur Leukocyte Esterase Hepatitis A IgM Ab Negative Hep Bs Antigen Negative Hep B Core IgM Ab Negative Hepatitis C Antibody Negative Blood Type Blood Type Confirm Antibody Screen Crossmatch BBK History Checked 03/13/19 03/13/19 03/13/19 08:00 08:00 08:00 WBC RBC Hgb Hct MCV MCH MCHC RDW Plt Count MPV Neut % (Auto) Lymph % (Auto) [place] % (Auto) Eos % (Auto) Baso % (Auto) Lymph # (Auto) [place] # (Auto) Eos # (Auto) Baso # (Auto) Absolute Neuts (auto) PT INR APTT Sodium Potassium Chloride Carbon Dioxide Anion Gap BUN Creatinine Est GFR ( Amer) Est GFR (Non-Af Amer) Random Glucose Hemoglobin A1c 5.5 Calcium Magnesium Iron TIBC % Saturation Total Bilirubin AST ALT Alkaline Phosphatase Troponin I NT-Pro-B Natriuret Pep Total Protein Albumin Globulin Albumin/Globulin Ratio Triglycerides 90 Cholesterol 130 LDL Cholesterol Direct 85 HDL Cholesterol 30 Amylase Lipase TSH 3rd Generation 2.75 Urine Color Urine Appearance Urine pH Ur Specific [place] Urine Protein Urine Glucose (UA) Urine Ketones Urine Blood Urine Nitrate Urine Bilirubin Urine Urobilinogen Ur Leukocyte Esterase Hepatitis A IgM Ab Hep Bs Antigen Hep B Core IgM Ab Hepatitis C Antibody Blood Type Blood Type Confirm Antibody Screen Crossmatch BBK History Checked 03/13/19 12:03 WBC RBC Hgb Hct MCV MCH MCHC RDW Plt Count MPV Neut % (Auto) Lymph % (Auto) [place] % (Auto) Eos % (Auto) Baso % (Auto) Lymph # (Auto) [place] # (Auto) Eos # (Auto) Baso # (Auto) Absolute Neuts (auto) PT INR APTT Sodium Potassium Chloride Carbon Dioxide Anion Gap BUN Creatinine Est GFR ( Amer) Est GFR (Non-Af Amer) Random Glucose Hemoglobin A1c Calcium Magnesium Iron 46 TIBC 393 % Saturation 12 L Total Bilirubin AST ALT Alkaline Phosphatase Troponin I NT-Pro-B Natriuret Pep Total Protein Albumin Globulin Albumin/Globulin Ratio Triglycerides Cholesterol LDL Cholesterol Direct HDL Cholesterol Amylase Lipase TSH 3rd Generation Urine Color Urine Appearance Urine pH Ur Specific [place] Urine Protein Urine Glucose (UA) Urine Ketones Urine Blood Urine Nitrate Urine Bilirubin Urine Urobilinogen Ur Leukocyte Esterase Hepatitis A IgM Ab Hep Bs Antigen Hep B Core IgM Ab Hepatitis C Antibody Blood Type Blood Type Confirm Antibody Screen Crossmatch BBK History Checked Attending/Attestation - Attestation I have personally seen and examined this patient.: Yes I have fully participated in the care of the patient.: Yes I have reviewed all pertinent clinical information: Yes Notes (Text): 03/13/19 13:06 I have seen and examined the pt with the GI fellow. This is a 78 yo [place] M with PMH of prior CVA (15 yrs ago), HTN and seizure d/o p/w RLQ abdominal pain and fatigue x few days. [place] the [place] visiting family and notes he had one episode of hematochezia 2 wks ago. Has never had EGD/colonoscopy. No family h/o GI cancers. Denies NSAID use. Usually not constipated until recently over the past 4-5 days. Found to have Hb 5.2, MCV 72.9, s/p 2U RBC with improvement in Hb. One brown BM overnight. Currently, feels ok. General: NAD, sitting up in bed Abd: soft, mildly distended, nontender Plan: -should get EGD/colonoscopy to r/o underlying GI path (i.e. PUD/DU, colon cancer, stercoral ulcer) -continue ppi iv bid for now -ok to start clear liquids -f/u surgery recommendations regarding R inguinal hernia -? NSTEMI --> would await cardiac clearance prior to endoscopy -d/w pt and pt's family who agree with the plan
[2019-03-13 08:26] LABS: HDL CHOLESTEROL 30 mg/dL (29-60)
[2019-03-13 08:37] LABS: LDL CHOLESTEROL 85 mg/dL (0-129)
--- NOTE | 2019-03-13 09:52 | RAD ---
Date of service: 03/13/2019 HISTORY: NGT COMPARISON: 03/12/2019 TECHNIQUE: 1 view obtained. FINDINGS: LUNGS: Mild vascular congestion. Nasogastric tube in satisfactory position PLEURA: No significant pleural effusion identified, no pneumothorax apparent. CARDIOVASCULAR: No aortic atherosclerotic calcification present. Mild cardiomegaly no pulmonary vascular congestion. OSSEOUS STRUCTURES: No significant abnormalities. VISUALIZED UPPER ABDOMEN: Normal. OTHER FINDINGS: None. IMPRESSION: Mild vascular congestion. Nasogastric tube in satisfactory position
[2019-03-13] MEDS ORDERED: NEBIVOLOL 5 MG PO SCH (10:00)
--- NOTE | 2019-03-13 11:49 | CP.PCM.PN ---
<Cristóbal Camacho - Last Filed: 03/13/19 12:18> Subjective - Date & Time of Evaluation Date of Evaluation: 03/13/19 Time of Evaluation: 08:30 - Subjective Subjective: INTERNAL MEDICINE PROGRESS NOTE FOR DR. MARGIE Camacho PGY1 Pt seen and examined at bedside this am. NG in place draining green/waterish fluid. Pt reports he had dark black BM this am. He reports his abdominal pain has improved significantly after BM. He reports no complaints this am. Software Developer Intern ID: [id number] Objective - Vital Signs/Intake and Output Vital Signs (last 24 hours): Temp Pulse Resp BP Pulse Ox 98.1 F 84 20 110/58 L 95 03/13/19 07:03 03/13/19 07:03 03/13/19 07:03 03/13/19 07:03 03/13/19 06:00 Intake and Output: 03/13/19 03/13/19 06:59 18:59 Intake Total 920 Output Total 1400 Balance -480 - Medications Medications: Current Medications Amlodipine Besylate (Norvasc) 10 mg PO DAILY [facility] Home Med (Home Med) 1 unit PO DAILY [place] Home Med (Home Med) 1 unit PO DAILY [facility] Lactated Ringer's (Lactated Ringer's) 1,000 mls @ 115 mls/hr IV .Q8H42M [facility] Last Admin: 03/13/19 05:00 Dose: 115 mls/hr Pantoprazole Sodium (Protonix Inj) 40 mg IVP BID [facility] - Labs Labs: 03/13/19 03:35 03/13/19 03:35 PT 13.4 SECONDS (9.4-12.5) H 03/12/19 13:50 INR 1.21 03/12/19 13:50 APTT 26.2 Seconds (26.9-38.3) L 03/12/19 13:50 - Constitutional Appears: Non-toxic, No Acute Distress - Head Exam Head Exam: ATRAUMATIC, NORMOCEPHALIC - Eye Exam Eye Exam: EOMI Additional comments: conjunctival pallor - ENT Exam ENT Exam: Mucous Membranes Moist - Respiratory Exam Respiratory Exam: Clear to Auscultation Bilateral, NORMAL BREATHING PATTERN. absent: Accessory Muscle Use Additional comments: coarse breath sounds bilaterally - Cardiovascular Exam Cardiovascular Exam: RRR, +S1, +S2 - GI/Abdominal Exam GI & Abdominal Exam: soft, non-distended. absent: Rebound, Rigid Additional comments: right abdomen protruding, bilateral inguinal hernia noted - Extremities Exam Extremities exam: Positive for: normal inspection. Negative for: calf tenderness - Neurological Exam Additional comments: right UE contracted, L leg 3/5 strength - Psychiatric Exam Psychiatric exam: Normal Affect, Normal Mood - Skin Skin Exam: Dry, Intact, Normal Color, Warm Assessment and Plan - Assessment and Plan (Free Text) Assessment: 78 year old male with a past medical history of hypertension, hemorrhagic stroke with right sided deficits, seizures who presented to ED with right sided abdominal and right thigh pain in the setting of constipation. Pt admitted to medicine for acute anemia, NSTEMI and questionable CHF exacerbation Plan: Abdominal pain secondary to partial obstruction - Likely 2/2 stercoral ulceration, diverticulosis, ?malignancy. Reducible inguinal hernia noted on exam - (+) FOBT - CT Abdomen/Pelvis CT 03/12: Bilateral inguinal hernias are seen. The right-sided inguinal hernia contains a loop of small bowel. This appears to be producing partial obstruction. Mildly dilated fluid-filled loops of small bowel are seen proximal to this hernia. The left-sided hernia contains a loop of the sigmoid colon with no evidence of obstruction. Each hernia measures a pproximately 5 cm in diameter. There is an irregular hypodense lesion in the lateral segment of the left lobe of the liver along the lateral edge. This measures 29 x 35 mm in size. This could represent a hemangioma. Clinical correlation is suggested regarding history of a primary malignancy. Follow-up is recommended - General Surgery/GI consulted - Per GI: f/u cardio recs prior to endoscopic evaluation - Keep patient NPO except for meds - Surgery consulted: Recommend elective evaluation of hernias for possible repair after stabilization and prioritization of acute anemia Acute microcytic anemia 2/2 LGIB s/p 2u pRBC - Pt noted dark black stool. FOBT pending - Hemoglobin 5.2, MCV: 72.9 03/12, post-transfusion Hgb: 8.0. Hemodynamically stable, BP - Iron studies pending: Ferritin, Iron, TIBC, transferrin - GI consulted, Dr. Guevara CHF exacerbation - Currently denying CP, palpitations, SOB, diaphoresis - Echocardiogram pending to determine systolic vs diastolic CXR 03/13: Mild vascular congestion. NG in satisfactory position CXR 03/12: Mild cardiomegaly & moderate vascular congestion BNP 03/12: 6360 - Cardiology consulted - Continue Nebivolol 5 mg (home medication) with holding parameters SBP<100, HR<60 - Measure I/Os, daily weights NSTEMI - Troponins: 03/12: 0.22, 03/13: 0.53. Troponin x 3 pending - Likely 2/2 demand ischemia for acute anemia - cardiology following - anticoagulation not indicated d/t suspected GIB History of Seizures - Continue with Phenytoin 100 mg Daily (home medication) - seizure precautions Hypertension - Continue Amlodipine 10 mg with holding parameter SBP<100 DVT/GI prophylaxis: SCD/Protonix Case reviewed with attending physician, Cyndy Camacho PGY1 <Cyndy Pastor R - Last Filed: 03/14/19 06:51> Objective - Vital Signs/Intake and Output Vital Signs (last 24 hours): Temp Pulse Resp BP Pulse Ox 98.1 F 62 18 108/61 98 03/14/19 05:58 03/14/19 05:58 03/14/19 05:58 03/14/19 05:58 03/14/19 05:58 Intake and Output: 03/13/19 03/14/19 18:59 06:59 Intake Total 1920 Output Total 1500 Balance 420 - Medications Medications: Current Medications Amlodipine Besylate (Norvasc) 10 mg PO DAILY [facility] Last Admin: 03/13/19 12:33 Dose: Not Given Home Med (Home Med) 1 unit PO DAILY [facility] Last Admin: 03/13/19 12:11 Dose: Not Given Home Med (Home Med) 1 unit PO DAILY [facility] Last Admin: 03/13/19 12:11 Dose: Not Given Lactated Ringer's (Lactated Ringer's) 1,000 mls @ 50 mls/hr IV .Q20H [facility] Last Admin: 03/14/19 06:00 Dose: 50 mls/hr Pantoprazole Sodium (Protonix Inj) 40 mg IVP BID [facility] Last Admin: 03/13/19 17:49 Dose: 40 mg - Labs Labs: 03/14/19 06:00 03/13/19 03:35 PT 13.4 SECONDS (9.4-12.5) H 03/12/19 13:50 INR 1.21 03/12/19 13:50 APTT 26.2 Seconds (26.9-38.3) L 03/12/19 13:50 Attending/Attestation - Attestation I have personally seen and examined this patient.: Yes I have fully participated in the care of the patient.: Yes I have reviewed all pertinent clinical information, including history, physical exam and plan: Yes Notes (Text): Patient seen and examined by me with resident at approximately 8:50AM on 03/13/19. Case including HPI, physical exam, and assessment and plan discussed with resident. Agree with above with following additions/corrections. Patient is a 78 year old male with past medical history significant or hemo rrhagic stroke with residual right sided weakness and hypertension that presented to the emergency room with right sided abdominal pain, right thigh pain, constipation, and difficulty urinating. Software Developer Intern #[id number] used for translation. Patient states he is feeling ok. States abdominal pain has improved. States he is having bowel movements and they are "black." Patient denies any nausea or vomiting. States he felt short of breath yesterday but feels better today. No headaches or dizziness. No fevers or chills. No chest pain or palpitations. Physical exam: General: Awake and alert lying in bed in no acute distress HEENT: Normocephalic, atraumatic. Extraocular muscles intact. Pupils equal and r eactive, no scleral icterus. NGT in place with minimal output. Neck is supple. Cardiovascular: Regular rhythm. Normal S1 and S2. No murmurs, rubs, or gallops appreciated Pulmonary: Normal respiratory effort. Mild expiratory wheezing noted. No rhonchi or rales appreciated Gastrointestinal: Soft, nondistended. Mild mid abdominal and right sided abdominal tenderness. Positive bowel sounds all 4 quadrants. No guarding. Musculoskeletal: No calf tenderness. No edema. Right upper extermity contracted (chronic from previous stroke). Central nervous system: Awake and alert. RUE contraction secondary to previous stroke. Dermatologic: Skin warm and dry. Assessment and plan: Patient is a 78 year old male with past medical history significant or hemorrhagic stroke with residual right sided weakness and hypertension that presented to the emergency room with right sided abdominal pain, right thigh pain, constipation, and difficulty urinating. 1. Abdominal pain. Bilateral inguinal hernia, partial obstruction secondary to right sided inguinal hernia. Surgical team recommendations appreciated. Continue NPO. NGT removed today. Hernias reducible. GI recommendations appreciated. Likely will need EGD once cleared by cardio. CT abdomen and pelvis per radiologist showed bilateral inguinal hernias are seen; right-sided inguinal hernia contains a loop of small bowel, this appears to be producing partial obstruction; mildly dilated fluid-filled loops of small bowel are seen proximal to this hernia; left-sided hernia containing a loop of sigmoid colon with no evidence of obstruction; each hernia measures approximately 5 cm in diameter; there is an irregular hypodense lesion in the lateral segment of the left lobe of the lower along the lateral edge, this measures 29 x 35 mm in size, this could represent a meningioma. 2. Anemia. Possible GI bleed. Stool for occult blooding pending. S/P 2 units PRBCS 03/12/19 with improvement. GI recommendations appreciated. Continue IV protonix. Possible EGD after cardiac clearance. 3. Elevated troponins. May be secondary to demand ischemia. 2D echo results pending. Cardiology recommendations pending. No ASA for now secondary to possible GI bleed. Continue to monitor on telemetry. 4. Shortness of breath. Vascular congestion on chest xray. Elevated BNP. 2d Echo results pending. S/P Lasix. Cardiology recommendations pending. Chest xray today per radiologist showed mild vascular congestion, NGT in satisfactory position. 5. Leukocytosis. Likely reactive. Resolved. Continue to monitor. 6. History of CVA with residual right sided weakness and RUE paralysis. No anticoagulants secondary to possible GI bleed. Continue home phenytoin for seizu re prophylaxis. 7. Hypertension. Continue home norvasc and Nebivolol. 8. Constipation. Resolved. Continue to monitor Case discussed in detail with the patient regarding current diagnosis and treatment plan. All questions answered.
[2019-03-13] MEDS: Home Med 1 UNIT PO SCH (12:11)
[2019-03-13] MEDS: PHENYTOIN PO SCH (12:11)
[2019-03-13 12:26] LABS: IRON 46 ug/dL (45-180)
[2019-03-13 12:35] LABS: HEPATITIS B SURFACE AG Negative (NEGATIVE)
[2019-03-13 12:36] LABS: % IRON SATURATION 12 % (20-55); TOTAL IRON BINDING CAPACITY 393 ug/dL (261-462)
[2019-03-13 12:40] LABS: HEPATITIS A IGM NEGATIVE (NEGATIVE); HEPATITIS B CORE AB NEGATIVE (NEGATIVE)
[2019-03-13 12:52] LABS: HEPATITIS C ANTIBODY NEGATIVE (NEGATIVE)
--- NOTE | 2019-03-13 12:56 | CP.PCM.PN ---
Subjective - Date & Time of Evaluation Date of Evaluation: 03/13/19 Time of Evaluation: 07:00 - Subjective Subjective: GENERAL SURGERY PROGRESS NOTE FOR DR. HANSON Patient seen and examined at bedside. He denies any abdominal pain. Denies nausea or vomiting. Had small, non bloody BM and is passing flatus. Objective - Vital Signs/Intake and Output Vital Signs (last 24 hours): Temp Pulse Resp BP Pulse Ox 98.1 F 84 20 110/58 L 95 03/13/19 07:03 03/13/19 07:03 03/13/19 07:03 03/13/19 07:03 03/13/19 06:00 Intake and Output: 03/13/19 03/13/19 06:59 18:59 Intake Total 920 Output Total 1400 Balance -480 - Medications Medications: Current Medications Amlodipine Besylate (Norvasc) 10 mg PO DAILY [facility] Last Admin: 03/13/19 12:33 Dose: Not Given Home Med (Home Med) 1 unit PO DAILY [facility] Last Admin: 03/13/19 12:11 Dose: Not Given Home Med (Home Med) 1 unit PO DAILY [facility] Last Admin: 03/13/19 12:11 Dose: Not Given Lactated Ringer's (Lactated Ringer's) 1,000 mls @ 50 mls/hr IV .Q20H [facility] Last Admin: 03/13/19 12:06 Dose: Not Given Pantoprazole Sodium (Protonix Inj) 40 mg IVP BID [facility] Last Admin: 03/13/19 12:33 Dose: 40 mg - Labs Labs: 03/13/19 03:35 03/13/19 03:35 PT 13.4 SECONDS (9.4-12.5) H 03/12/19 13:50 INR 1.21 03/12/19 13:50 APTT 26.2 Seconds (26.9-38.3) L 03/12/19 13:50 - Constitutional Appears: Non-toxic, No Acute Distress - Head Exam Head Exam: ATRAUMATIC, NORMAL INSPECTION - Eye Exam Eye Exam: EOMI, Normal appearance - Respiratory Exam Respiratory Exam: NORMAL BREATHING PATTERN. absent: Respiratory Distress - Cardiovascular Exam Cardiovascular Exam: +S1, +S2 - GI/Abdominal Exam GI & Abdominal Exam: Soft. absent: Distended, Firm, Guarding, Rigid, Tenderness, Rebound Additional comments: NG tube with 150cc clear fluid since insertion - Neurological Exam Neurological Exam: Alert, Awake, Oriented x3 - Psychiatric Exam Psychiatric exam: Normal Affect, Normal Mood - Skin Skin Exam: Dry, Normal Color, Warm Assessment and Plan - Assessment and Plan (Free Text) Assessment: 78M w/ possible SBO, anemia and bilateral reducible inguinal hernias, now having bowel function Plan: - NPO - DC NG tube - FU GI recs for possible colonoscopy/endoscopy - Cardiology evaluation for elevated troponins - Recommend elective evaluation of hernias for possible repair after stabilization and prioritization of acute anemia - Discussed plan with Dr. Dawit Goldstein PGY-4
--- NOTE | 2019-03-13 14:23 | CON ---
DATE OF CONSULTATION: 03/13/2019 CARDIOLOGY CONSULTATION HISTORY: The patient is a 78-year-old male, who presents with abdominal pain. There is no history obtainable. PAST MEDICAL HISTORY: The patient's past medical history includes a CVA as well as hypertension. The patient was found to have a hemoglobin of 5.2 on admission. In addition, the troponins were elevated. No previous cardiac history is noted. PHYSICAL EXAMINATION: VITAL SIGNS: Blood pressure 110/58, the heart rate is in the 80s, normal sinus rhythm. NECK: Negative JVD. LUNGS: Decreased breath sounds. HEART: Reveals a 2/6 systolic ejection murmur. EXTREMITIES: Without edema. LABORATORY DATA: EKG is normal sinus rhythm with a right bundle-branch block and left anterior hemiblock. Hemoglobin is now 8. Troponins of 0.22 and 0.53. Glucose is 126. Preliminary echocardiogram revealed good LV function. IMPRESSION: 1. Marked anemia. 2. Abdominal pain. 3. Non-ST elevation myocardial infarction, likely due to marked anemia. 4. Diabetes mellitus. 5. Hypertension. 6. Good left ventricular function. PLAN: Given these findings, the patient cannot be anticoagulated at this time for elevated troponins. We will maintain the hemoglobin around 8 to 9. We will need extensive GI workup. Yohan Espinosa MD
--- NOTE | 2019-03-13 17:37 | CARD ---
APPROVED REPORT Date of service: 03/13/2019 EXAM: Two-dimensional and M-mode echocardiogram with Doppler and color Doppler. INDICATION LV Function:SystolicDiastolic 2D DIMENSIONS Left Atrium (2D)3.2 (1.6-4.0cm)IVSd1.2 (0.7-1.1cm) LVDd5.0 (3.9-5.9cm)PWd1.2 (0.7-1.1cm) LVDs3.1 (2.5-4.0cm) M-Mode DIMENSIONS Aortic Root3.80 (2.2-3.7cm)Aortic Cusp Exc.1.80 (1.5-2.0cm) Aortic Valve AoV Peak Qnzbsrmc268.0cm/Terrence Peak GR.7mmHg Mitral Valve MV E Nxgwmbvz158.0cm/sMV A Vqnppayo116.0cm/sE/A ratio0.9 TDI E/Lateral E'0.0E/Medial E'0.0 Tricuspid Valve TR Peak [id number]/sRAP [id number] Peak Gr.35mmHg [id number] LEFT VENTRICLE The left ventricle is normal size. There is borderline to mild concentric left ventricular hypertrophy. Over all LV Function preserved.EF-55% There is mild hypokinesis in the apical anterior wall. Transmitral Doppler flow pattern is Grade III-reversible restrictive diastolic dysfunction. No left ventricle thrombus noted on this study. There is no ventricular septal defect visualized. There is no left ventricular aneurysm. There is no mass noted in the left ventricle. RIGHT VENTRICLE The right ventricle is normal size. There is normal right ventricular wall thickness. The right ventricular systolic function is normal. ATRIA The left atrium size is normal. The right atrium size is normal. The interatrial septum is intact with no evidence for an atrial septal defect. AORTIC VALVE The aortic valve is thickened but opens well. There is trace aortic regurgitation. There is no aortic valvular stenosis. There is no aortic valvular vegetation. MITRAL VALVE The mitral valve is thickened but opens well. Mitral regurgitation is mild. There is no mitral valve stenosis. There is no evidence of mitral valve prolapse. TRICUSPID VALVE The tricuspid valve leaflets are thickened , but open well. There is mild to moderate tricuspid regurgitation.RVSP_40 mmof hg. There is no tricuspid valve stenosis. There is no tricuspid valve prolapse or vegetation. PULMONIC VALVE The pulmonary valve is normal in structure. There is trace pulmonic valvular regurgitation. There is no pulmonic valvular stenosis. GREAT VESSELS The aortic root is normal in size. The ascending aorta is normal in size. The pulmonary artery is normal. The IVC is normal in size and collapses >50% with inspiration. PERICARDIAL EFFUSION There is no pleural effusion. There is no pericardial effusion. <Conclusion> The left ventricle is normal size. There is borderline to mild concentric left ventricular hypertrophy. Over all LV Function preserved.EF-55% There is mild hypokinesis in the apical anterior wall. There is trace aortic regurgitation. Mitral regurgitation is mild. There is mild to moderate tricuspid regurgitation.RVSP_40 mmof hg. There is trace pulmonic valvular regurgitation. The IVC is normal in size and collapses >50% with inspiration. There is no pericardial effusion. No vegetation or thrombus noted.
[2019-03-14] MEDS: Lactated Ringer's 1,000 ML IV SCH (06:00)
[2019-03-14 06:31] LABS: BASO # 0.04 K/mm3 (0.0-2.0); BASO % 0.6 % (0.0-3.0); EOS # 0.2 (0.0-0.7); HEMOGLOBIN 7.5 g/dL (14.0-18.0); LYMPH # 1.5 (1.2-3.4); LYMPH % 23.1 % (22.0-35.0); MEAN CELL VOLUME 76.3 fl (80.0-105.0); MEAN CORPUSCULAR HEMOGLOBIN 22.5 pg (25.0-35.0); MEAN CORPUSCULAR HGB CONC 29.4 g/dl (31.0-37.0); MEAN PLATELET VOLUME 9.2 fl (7.0-11.0); MONO # 0.6 (0.1-0.6); MONO % 8.7 % (1.0-6.0); RBC 3.34 10^6/uL (3.5-6.1); RED CELL DISTRIBUTION WIDTH 19.6 % (11.5-14.5); WHITE BLOOD COUNT 6.4 10^3/uL (4.5-11.0)
--- NOTE | 2019-03-14 07:17 | CP.PCM.PN ---
Subjective - Date & Time of Evaluation Date of Evaluation: 03/14/19 Time of Evaluation: 07:10 - Subjective Subjective: Surgery Progress Note for Dr. Pastor 78M seen and evaluated at bedside this morning. No acute events overnight. No complaints this morning. Patient states he is having non-bloody bowel movements and passing gas. Denies weakness, abdominal pain, chest pain, or dizziness. Patient denies f/c, n/v/d, SOB, or urinary symptoms. Objective - Vital Signs/Intake and Output Vital Signs (last 24 hours): Temp Pulse Resp BP Pulse Ox 98.1 F 62 18 108/61 98 03/14/19 05:58 03/14/19 05:58 03/14/19 05:58 03/14/19 05:58 03/14/19 05:58 Intake and Output: 03/14/19 03/14/19 06:59 18:59 Intake Total 1920 Output Total 1500 Balance 420 - Medications Medications: Current Medications Amlodipine Besylate (Norvasc) 10 mg PO DAILY [facility] Last Admin: 03/13/19 12:33 Dose: Not Given Furosemide (Lasix) 20 mg IVP DAILY [facility] Home Med (Home Med) 1 unit PO DAILY [facility] Last Admin: 03/13/19 12:11 Dose: Not Given Home Med (Home Med) 1 unit PO DAILY [facility] Last Admin: 03/13/19 12:11 Dose: Not Given Lactated Ringer's (Lactated Ringer's) 1,000 mls @ 50 mls/hr IV .Q20H [facility] Last Admin: 03/14/19 06:00 Dose: 50 mls/hr Pantoprazole Sodium (Protonix Inj) 40 mg IVP BID [facility] Last Admin: 03/13/19 17:49 Dose: 40 mg - Labs Labs: 03/14/19 06:00 03/13/19 03:35 PT 13.4 SECONDS (9.4-12.5) H 03/12/19 13:50 INR 1.21 03/12/19 13:50 APTT 26.2 Seconds (26.9-38.3) L 03/12/19 13:50 - Constitutional Appears: Well, Non-toxic, No Acute Distress - Head Exam Head Exam: ATRAUMATIC, NORMAL INSPECTION, NORMOCEPHALIC - Eye Exam Eye Exam: EOMI - ENT Exam ENT Exam: Mucous Membranes Dry - Respiratory Exam Respiratory Exam: NORMAL BREATHING PATTERN. absent: Wheezes, Respiratory Distress - GI/Abdominal Exam GI & Abdominal Exam: Soft, Hernia, Normal Bowel Sounds. absent: Tenderness Additional comments: bilateraly reducible inguinal hernias - Neurological Exam Neurological Exam: Alert, Awake - Psychiatric Exam Psychiatric exam: Normal Affect, Normal Mood - Skin Skin Exam: Dry, Intact, Normal Color, Warm Assessment and Plan - Assessment and Plan (Free Text) Assessment: 78M w/ possible SBO, anemia and bilateral reducible inguinal hernias, now having bowel function Plan: CLD Advance diet as tolerated F/u GI recs for possible colonoscopy/endoscopy Cardiology recommends no anticoagulation and maintenance of Hgb between 8-9 S/p 2uPRBCs w/ current Hgb of 7.5 Continue Monitor H/H Transfuse < 8 Recommend elective evaluation of hernias for possible repair after stabilization and prioritization of acute anemia No acute surgical intervention at this present time Jeanmarie Lion PGY1
[2019-03-14 07:43] LABS: ALB/GLOB RATIO 1.1 (1.1-1.8); ALBUMIN 3.4 g/dL (3.0-4.8); ALT/SGPT 11 U/L (7-56); AST/SGOT 18 U/L (17-59); BLOOD UREA NITROGEN 9 mg/dL (7-21); CALCIUM 7.9 mg/dL (8.4-10.5); GFR NON-AFRICAN AMERICAN > 60; TROPONIN I 0.19 ng/mL
[2019-03-14] MEDS ORDERED: Potassium Chloride 20 mEq ER Tab PO ONE ×2 (07:48→16:00)
[2019-03-14] MEDS: PHENYTOIN PO SCH (09:31)
[2019-03-14] MEDS: Home Med 1 UNIT PO SCH (09:31)
--- NOTE | 2019-03-14 11:37 | CP.PCM.PN ---
<Cristóbal Camacho - Last Filed: 03/14/19 11:31> Subjective - Date & Time of Evaluation Date of Evaluation: 03/14/19 Time of Evaluation: 08:30 - Subjective Subjective: INTERNAL MEDICINE PROGRESS NOTE FOR DR. MARGIE Camacho PGY1 Pt seen and examined at bedside this am. No acute events overnight. Per cardiology, pt to be transfused 1u pRBC. He reports pain in his lower RLQ. He reports he passed bowel movement this am and passed black stool. He also urinated. He otherwise denies ROS Objective - Vital Signs/Intake and Output Vital Signs (last 24 hours): Temp Pulse Resp BP Pulse Ox 98.7 F 80 18 115/57 L 98 03/14/19 11:05 03/14/19 11:05 03/14/19 11:05 03/14/19 11:05 03/14/19 05:58 Intake and Output: 03/14/19 03/14/19 06:59 18:59 Intake Total 2520 0 Output Total 1500 Balance 1020 0 - Medications Medications: Current Medications Home Med (Home Med) 1 unit PO DAILY [facility] Last Admin: 03/14/19 09:31 Dose: Not Given Home Med (Home Med) 1 unit PO DAILY [facility] Last Admin: 03/14/19 09:31 Dose: Not Given Metoprolol Tartrate (Lopressor) 25 mg PO BID [facility] Pantoprazole Sodium (Protonix Inj) 40 mg IVP BID [facility] Last Admin: 03/14/19 10:04 Dose: 40 mg Potassium Chloride (K-Dur 20 Meq Er Tab) 20 meq PO ONCE ONE Stop: 03/14/19 16:01 - Labs Labs: 03/14/19 06:00 03/14/19 06:00 PT 13.4 SECONDS (9.4-12.5) H 03/12/19 13:50 INR 1.21 03/12/19 13:50 APTT 26.2 Seconds (26.9-38.3) L 03/12/19 13:50 - Constitutional Appears: Non-toxic, No Acute Distress - Head Exam Head Exam: ATRAUMATIC, NORMOCEPHALIC - Eye Exam Eye Exam: EOMI Additional comments: conjunctival pallor - ENT Exam ENT Exam: Mucous Membranes Moist - Respiratory Exam Respiratory Exam: Clear to Auscultation Bilateral, NORMAL BREATHING PATTERN. absent: Accessory Muscle Use Additional comments: coarse breath sounds bilaterally - Cardiovascular Exam Cardiovascular Exam: RRR, +S1, +S2 - GI/Abdominal Exam GI & Abdominal Exam: soft, non-distended. absent: Rebound, Rigid Additional comments: right abdomen protruding, bilateral inguinal hernia noted - Extremities Exam Extremities exam: Positive for: normal inspection. Negative for: calf tenderness - Neurological Exam Additional comments: right UE contracted, L leg 3/5 strength - Psychiatric Exam Psychiatric exam: Normal Affect, Normal Mood - Skin Skin Exam: Dry, Intact, Normal Color, Warm Assessment and Plan - Assessment and Plan (Free Text) Assessment: 78 year old male with a past medical history of hypertension, hemorrhagic stroke with right sided deficits, seizures who presented to ED with right sided abdominal and right thigh pain in the setting of constipation. Pt admitted to edicine for acute anemia, NSTEMI and questionable CHF exacerbation Plan: Abdominal pain secondary to partial obstruction - Likely 2/2 stercoral ulceration, diverticulosis, ?malignancy. Reducible inguinal hernia noted on exam. (+) FOBT - Per GI: Likely endoscopy tomorrow 03/15, will keep NPO after midnight - CT Abdomen/Pelvis CT 03/12: Bilateral inguinal hernias are seen. The right- sided inguinal hernia contains a loop of small bowel. This appears to be producing partial obstruction. Mildly dilated fluid-filled loops of small bowel are seen proximal to this hernia. The left-sided hernia contains a loop of the sigmoid colon with no evidence of obstruction. Each hernia measures approximately 5 cm in diameter. There is an irregular hypodense lesion in the lateral segment of the left lobe of the liver along the lateral edge. This measures 29 x 35 mm in size. This could represent a hemangioma. Clinical correlation is suggested regarding history of a primary malignancy. Follow-up is recommended - Surgery consulted: Recommend elective evaluation of hernias for possible repair after stabilization and prioritization of acute anemia. No intervention in hospital Acute microcytic anemia 2/2 LGIB s/p 2u pRBC - Pt noted dark black stool. FOBT (+). Hgb 7.5 - Will administer 1u pRBC, with f/u CBC & lasix IVP - H/H today: 7.5/25.5. Will administer 1u pRBC to maintain Hgb between 8-9. Hemodynamically stable - GI following CHF exacerbation - Currently denying CP, palpitations, SOB, diaphoresis - Echocardiogram 03/13: LV normal size. EF 55%. Mild hypokinesis in the apical anterior wall. Mild-mod TR RVSP 40mmHg, No pericardial effusion. RVSP 40mmHg CXR 03/13: Mild vascular congestion. NG in satisfactory position CXR 03/12: Mild cardiomegaly & moderate vascular congestion BNP 03/12: 6360 - Cardiology consulted - Continue Nebivolol 5 mg (home medication) with holding parameters SBP<100, HR<60 - Continue metoprolol added by cardiology - Measure I/Os, daily weights NSTEMI - Troponins: 03/12: 0.22, 03/13: 0.53. Troponin x 3 pending - Likely 2/2 demand ischemia for acute anemia - cardiology following - anticoagulation not indicated d/t suspected GIB History of Seizures - Continue with Phenytoin 100 mg Daily (home medication) - seizure precautions Hypertension - d/c amlodipine DVT/GI prophylaxis: SCD/Protonix Case reviewed with attending physician, Dr. Cyndy Camacho PGY1 <Cyndy Pastor R - Last Filed: 03/15/19 07:18> Objective - Vital Signs/Intake and Output Vital Signs (last 24 hours): Temp Pulse Resp BP Pulse Ox 98.3 F 69 20 125/62 95 03/15/19 05:20 03/15/19 05:20 03/15/19 05:20 03/15/19 05:20 03/14/19 18:00 Intake and Output: 03/15/19 03/15/19 06:59 18:59 Intake Total 2487 Output Total 2760 Balance -273 - Medications Medications: Current Medications Home Med (Home Med) 1 unit PO DAILY [facility] Last Admin: 03/14/19 09:31 Dose: Not Given Home Med (Home Med) 1 unit PO DAILY [facility] Last Admin: 03/14/19 09:31 Dose: Not Given Metoprolol Tartrate (Lopressor) 25 mg PO BID [facility] Last Admin: 03/14/19 17:21 Dose: 25 mg Pantoprazole Sodium (Protonix Inj) 40 mg IVP BID [facility] Last Admin: 03/14/19 17:22 Dose: 40 mg - Labs Labs: 03/15/19 06:10 03/14/19 06:00 PT 13.4 SECONDS (9.4-12.5) H 03/12/19 13:50 INR 1.21 03/12/19 13:50 APTT 26.2 Seconds (26.9-38.3) L 03/12/19 13:50 Attending/Attestation - Attestation I have personally seen and examined this patient.: Yes I have fully participated in the care of the patient.: Yes I have reviewed all pertinent clinical information, including history, physical exam and plan: Yes Notes (Text): Patient seen and examined by me with resident at approximately 9:20AM on 03/14/19. Case including HPI, physical exam, and assessment and plan discussed with resident. Agree with above with following additions/corrections. Patient is a 78 year old male with past medical history significant or hemorrhagic stroke with residual right sided weakness and hypertension that presented to the emergency room with right sided abdominal pain, right thigh pain, constipation, and difficulty urinating. Patient states he is feeling better. Still has some right lower abdominal pain but states it is better. Also complains of some pain with urination. Still having bowel movements that are "black." No nausea or vomiting. No shortness of breath. No headaches or dizziness. No fevers or chills. No chest pain or palpitations. Physical exam: General: Awake and alert lying in bed in no acute distress HEENT: Normocephalic, atraumatic. Extraocular muscles intact. Pupils equal and reactive, no scleral icterus. Oropharynx pink and moist. No pharyngeal erythema or exudate noted. Neck is supple. Cardiovascular: Regular rhythm. Normal S1 and S2. No murmurs, rubs, or gallops appreciated Pulmonary: Normal respiratory effort. No rhonchi, rales, or wheezing appreciated Gastrointestinal: Soft, nondistended. Mild lower right abdominal tenderness. Positive bowel sounds all 4 quadrants. No guarding. Musculoskeletal: No calf tenderness. No edema. Right upper extermity paresis Central nervous system: Awake and alert. RUE contraction and paresis from previous stroke. Dermatologic: Skin warm and dry. Assessment and plan: Patient is a 78 year old male with past medical history significant or hemorrhagic stroke with residual right sided weakness and hypertension that presented to the emergency room with right sided abdominal pain, right thigh pain, constipation, and difficulty urinating. 1. Abdominal pain. Bilateral inguinal hernias with partial obstruction secondary to right sided inguinal hernia. Surgical team recommendations NGT removed. Tolerating liquid diet. Hernias reducible, will need outpatient follow up for possible surgical repair. GI recommendations appreciated. For EGD tomorrow. CT abdomen and pelvis per radiologist showed bilateral inguinal hernias are seen; right-sided inguinal hernia contains a loop of small bowel, this appears to be producing partial obstruction; mildly dilated fluid-filled loops of small bowel are seen proximal to this hernia; left-sided hernia containing a loop of sigmoid colon with no evidence of obstruction; each hernia measures approximately 5 cm in diameter; there is an irregular hypodense lesion in the lateral segment of the left lobe of the lower along the lateral edge, this measures 29 x 35 mm in size, this could represent a meningioma. 2. Anemia. Possible GI bleed. Stool for occult blooding pending. S/P 2 units PRBCS 03/12/19. H&H downtrended. Will transufuse 1 unit PRBC. GI recommendations appreciated. Continue IV protonix. For EGD tomorrow. 3. Elevated troponins. Likely secondary to demand ischemia. 2D echo per heel nailing machine operator showed ventricles normal size, borderline to mild concentric left ventricular hypertrophy, overall left ventricular function preserved, EF 55%, mild hypokinesis in the apical anterior wall, trace aortic regurgitation, mitral regurgitation is mild, mild to moderate tricuspid regurgitation, trace pulmonic valvular regurgitation, no pericardial effusion, no vegetation or thrombus noted, grade 3 reversible restrictive diastolic dysfunction. Cardiology recommendations appreciated. No anticoagulants or antiplatelets secondary to possible GI bleed. Metoprolol added. Continue to monitor on telemetry. 4. Shortness of breath. Vascular congestion on chest xray. Elevated BNP. Improved. 2d Echo as above. Likely secondary to diastolic dysfunction. S/P Lasix. Cardiology recommendations apppreciated. 5. Leukocytosis. Likely reactive. Resolved. Continue to monitor. 6. History of CVA with residual right sided weakness and RUE paralysis. No anticoagulants or antiplatelets secondary to possible GI bleed. Continue home phenytoin for seizure prophylaxis. 7. Hypertension. Continue Metoprolol 8. Constipation. Resolved. Continue to monitor Case discussed in detail with the patient and patient's family at bedside regarding current diagnosis and treatment plan. All questions answered.
--- NOTE | 2019-03-14 12:26 | PN ---
DATE: 03/14/2019 CARDIOLOGY FOLLOWUP SUBJECTIVE: The patient is without complaints. No shortness of breath. No chest pain. PHYSICAL EXAMINATION: VITAL SIGNS: Blood pressure is 106/66 and heart rates in the 80s. NECK: Negative JVD. LUNGS: Without rales. HEART: Reveals S1 and S2. EXTREMITIES: Without edema. LABORATORY DATA: Troponin 0.19. The hemoglobin is 7.5. IMPRESSION: 1. Gastrointestinal bleed. 2. Non-ST elevation myocardial infarction secondary to marked anemia. 3. Coronary artery disease. 4. Good left ventricular function. 5. Hypertension. 6. Diabetes mellitus. Given these findings, we cannot give anticoagulation given the patient's GI bleed. We will start the patient on beta-blockers. We will maintain his hemoglobin above 8. Yohan Espinosa MD
--- NOTE | 2019-03-14 15:14 | CP.PCM.PN ---
<KristinejohniepascualLennytg - Last Filed: 03/14/19 15:44> Subjective - Date & Time of Evaluation Date of Evaluation: 03/14/19 Time of Evaluation: 14:50 - Subjective Subjective: PGY-4 GI fellow progress note Patient was lying in bed when seen this afternoon. History obtained via daughter and invoice coder line. Patient states he is without abdominal pain and moved bowels earlier today with brown bowel movement. Tolerating diet. Five-point review of systems negative other than stated above Objective - Vital Signs/Intake and Output Vital Signs (last 24 hours): Temp Pulse Resp BP Pulse Ox 98.4 F 68 18 107/69 98 03/14/19 14:35 03/14/19 14:35 03/14/19 14:35 03/14/19 14:58 03/14/19 05:58 Intake and Output: 03/14/19 03/14/19 06:59 18:59 Intake Total 2520 325 Output Total 1500 Balance 1020 325 - Medications Medications: Current Medications Home Med (Home Med) 1 unit PO DAILY [facility] Last Admin: 03/14/19 09:31 Dose: Not Given Home Med (Home Med) 1 unit PO DAILY [facility] Last Admin: 03/14/19 09:31 Dose: Not Given Metoprolol Tartrate (Lopressor) 25 mg PO BID [facility] Last Admin: 03/14/19 12:32 Dose: 25 mg Pantoprazole Sodium (Protonix Inj) 40 mg IVP BID [facility] Last Admin: 03/14/19 10:04 Dose: 40 mg Potassium Chloride (K-Dur 20 Meq Er Tab) 20 meq PO ONCE ONE Stop: 03/14/19 16:01 Sodium Cl/Sod Bicarb/Potass Cl/PEG (Nulytely With Flavor Packs Kitty) 4,000 ml PO ONCE ONE Stop: 03/14/19 16:01 - Labs Labs: 03/14/19 06:00 03/14/19 06:00 PT 13.4 SECONDS (9.4-12.5) H 03/12/19 13:50 INR 1.21 03/12/19 13:50 APTT 26.2 Seconds (26.9-38.3) L 03/12/19 13:50 - Constitutional Appears: Well, No Acute Distress - Head Exam Head Exam: ATRAUMATIC, NORMAL INSPECTION - Eye Exam Eye Exam: EOMI. absent: Scleral icterus - ENT Exam ENT Exam: Mucous Membranes Moist. absent: Mucous Membranes Dry - Respiratory Exam Respiratory Exam: NORMAL BREATHING PATTERN. absent: Accessory Muscle Use - GI/Abdominal Exam GI & Abdominal Exam: Distended (mildly), Soft, Normal Bowel Sounds. absent: Bruit, Firm, Guarding, Rigid, Tenderness, Mass, Organomegaly, Pulsatile Mass, Rebound - Skin Skin Exam: Normal Color, Warm Assessment and Plan - Assessment and Plan (Free Text) Assessment: 78-year-old male with past medical history of CVA, hypertension, history of seizures presenting with abdominal pain and anemia. #Acute microcytic anemia: Hemoglobin 5.2 with an MCV of 72.9. Unclear baseline. Hemodynamically stable without any prior endoscopic evaluations. Some reports of transient bright red blood per rectum in the weeks prior. No signs of upper GI bleed at this time. CT scan with large stool burden. Possible stercoral oral ulceration, diverticulosis, malignancy associated bleeding with possible mass felt on ANDRES #Liver lesion: Seen on admission CT scan with IV contrast only. Suspect hemangioma #Bilateral inguinal hernias: Right with partial small bowel obstruction. Gener al surgery following. Patient currently nothing by mouth. #NSTEMI:troponin 0.2 to uptrending to 0.53. Cardiology consulted. #History of CVA: Right hemiparesis. Plan: Risks, benefits and alternatives discussed with patient and daughter via invoice coder line --patient and daughter (patient had difficulty signing consent form due to residual stroke deficits) consented to EGD and colonoscopy evaluation Clear liquid diet GoLYTELY prep tonight Continue PPI BID for now -Monitor labs Patient discussed with Dr. Guevara. Please see attestation for further recommendations/changes. <Toni Guevara - Last Filed: 03/14/19 16:05> Objective - Vital Signs/Intake and Output Vital Signs (last 24 hours): Temp Pulse Resp BP Pulse Ox 98.4 F 68 18 107/69 98 03/14/19 14:35 03/14/19 14:35 03/14/19 14:35 03/14/19 14:58 03/14/19 05:58 Intake and Output: 03/14/19 03/14/19 06:59 18:59 Intake Total 2520 325 Output Total 1500 Balance 1020 325 - Medications Medications: Current Medications Home Med (Home Med) 1 unit PO DAILY [facility] Last Admin: 03/14/19 09:31 Dose: Not Given Home Med (Home Med) 1 unit PO DAILY [facility] Last Admin: 03/14/19 09:31 Dose: Not Given Metoprolol Tartrate (Lopressor) 25 mg PO BID [facility] Last Admin: 03/14/19 12:32 Dose: 25 mg Pantoprazole Sodium (Protonix Inj) 40 mg IVP BID [facility] Last Admin: 03/14/19 10:04 Dose: 40 mg - Labs Labs: 03/14/19 06:00 03/14/19 06:00 PT 13.4 SECONDS (9.4-12.5) H 03/12/19 13:50 INR 1.21 03/12/19 13:50 APTT 26.2 Seconds (26.9-38.3) L 03/12/19 13:50 Attending/Attestation - Attestation I have fully participated in the care of the patient.: Yes I have reviewed all pertinent clinical information, including history, physical exam and plan: Yes Notes (Text): 03/14/19 16:03 CVA HTN Seizure disorder Anemia, abdominal pain NSTEMI - Liquid diet as tolerated - H/H stable, continue to monitor - Follow up cardiology recommendations, currently witholding anticoagulation therapy for NSTEMI - Plan for EGD/colonoscopy evaluation tomorrow, golytely bowel preparation today, NPO after midnight
[2019-03-14] MEDS ORDERED: NuLYTELY (NACL/NAHCO3/KCL/PEG) 4L PO ONE (16:00)
[2019-03-14 19:31] LABS: HEMOGLOBIN 8.8 g/dL (14.0-18.0); MEAN CELL VOLUME 78.5 fl (80.0-105.0); MEAN CORPUSCULAR HEMOGLOBIN 23.3 pg (25.0-35.0); MEAN CORPUSCULAR HGB CONC 29.7 g/dl (31.0-37.0); MEAN PLATELET VOLUME 9.4 fl (7.0-11.0); RBC 3.77 10^6/uL (3.5-6.1); RED CELL DISTRIBUTION WIDTH 19.4 % (11.5-14.5); WHITE BLOOD COUNT 7.5 10^3/uL (4.5-11.0)
[2019-03-15 06:46] LABS: BASO # 0.04 K/mm3 (0.0-2.0); BASO % 0.7 % (0.0-3.0); EOS # 0.4 (0.0-0.7); HEMOGLOBIN 9.1 g/dL (14.0-18.0); LYMPH # 1.6 (1.2-3.4); MEAN CELL VOLUME 79.1 fl (80.0-105.0); MEAN CORPUSCULAR HEMOGLOBIN 23.2 pg (25.0-35.0); MEAN CORPUSCULAR HGB CONC 29.4 g/dl (31.0-37.0); MEAN PLATELET VOLUME 9.7 fl (7.0-11.0); MONO # 0.5 (0.1-0.6); MONO % 8.7 % (1.0-6.0); RBC 3.92 10^6/uL (3.5-6.1); RED CELL DISTRIBUTION WIDTH 19.8 % (11.5-14.5); WHITE BLOOD COUNT 5.9 10^3/uL (4.5-11.0)
[2019-03-15 07:19] LABS: ALBUMIN 3.4 g/dL (3.0-4.8); ALT/SGPT 14 U/L (7-56); AST/SGOT 20 U/L (17-59); BLOOD UREA NITROGEN 8 mg/dL (7-21); CALCIUM 7.7 mg/dL (8.4-10.5); GFR NON-AFRICAN AMERICAN > 60
--- NOTE | 2019-03-15 08:44 | CP.PCM.PN ---
<Cristóbal Camacho - Last Filed: 03/15/19 11:07> Subjective - Date & Time of Evaluation Date of Evaluation: 03/15/19 Time of Evaluation: 08:41 - Subjective Subjective: INTERNAL MEDICINE PROGRESS NOTE FOR DR. MARGIE Camacho PGY1 Pt seen and examined at bedside this am. Pt reporting bloody bowel movements overnight Pt tolerated 1u pRBC transfusion yesterday. Bowel prep for colonoscopy completed. He denies dizziness, chest pain, palpitations. He denies ROS this am. Objective - Vital Signs/Intake and Output Vital Signs (last 24 hours): Temp Pulse Resp BP Pulse Ox 98.3 F 69 20 125/62 95 03/15/19 05:20 03/15/19 05:20 03/15/19 05:20 03/15/19 05:20 03/14/19 18:00 Intake and Output: 03/15/19 03/15/19 06:59 18:59 Intake Total 2487 Output Total 2760 Balance -273 - Medications Medications: Current Medications Home Med (Home Med) 1 unit PO DAILY [facility] Last Admin: 03/14/19 09:31 Dose: Not Given Home Med (Home Med) 1 unit PO DAILY [facility] Last Admin: 03/14/19 09:31 Dose: Not Given Metoprolol Tartrate (Lopressor) 25 mg PO BID [facility] Last Admin: 03/14/19 17:21 Dose: 25 mg Pantoprazole Sodium (Protonix Inj) 40 mg IVP BID [facility] Last Admin: 03/14/19 17:22 Dose: 40 mg - Labs Labs: 03/15/19 06:10 03/15/19 06:10 PT 13.4 SECONDS (9.4-12.5) H 03/12/19 13:50 INR 1.21 03/12/19 13:50 APTT 26.2 Seconds (26.9-38.3) L 03/12/19 13:50 - Constitutional Appears: Non-toxic, No Acute Distress - Head Exam Head Exam: ATRAUMATIC, NORMOCEPHALIC - Eye Exam Eye Exam: EOMI Additional comments: conjunctival pallor - ENT Exam ENT Exam: Mucous Membranes Moist - Respiratory Exam Respiratory Exam: Clear to Auscultation Bilateral, NORMAL BREATHING PATTERN. absent: Accessory Muscle Use Additional comments: coarse breath sounds bilaterally - Cardiovascular Exam Cardiovascular Exam: RRR, +S1, +S2 - GI/Abdominal Exam GI & Abdominal Exam: soft, non-distended. absent: Rebound, Rigid Additional comments: right abdomen protruding, bilateral inguinal hernia noted. : [place] catheter in place - Extremities Exam Extremities exam: Positive for: normal inspection. Negative for: calf tenderness - Neurological Exam Additional comments: right UE contracted, L leg 3/5 strength - Psychiatric Exam Psychiatric exam: Normal Affect, Normal Mood - Skin Skin Exam: Dry, Intact, Normal Color, Warm Assessment and Plan - Assessment and Plan (Free Text) Assessment: 78 year old male with a past medical history of hypertension, hemorrhagic stroke with right sided deficits, seizures who presented to ED with right sided abdominal and right thigh pain in the setting of constipation. Pt admitted to medicine for acute anemia, NSTEMI and questionable CHF exacerbation Plan: Abdominal pain - Likely 2/2 stercoral ulceration, diverticulosis, ?malignancy. Reducible inguinal hernia noted on exam. (+) FOBT - Per GI: Likely endoscopy this am. Tolerated bowel prep. Further GI recs post colonoscopy - CT Abdomen/Pelvis CT 03/12: Bilateral inguinal hernias are seen. The right- sided inguinal hernia contains a loop of small bowel. This appears to be producing partial obstruction. Mildly dilated fluid-filled loops of small bowel are seen proximal to this hernia. The left-sided hernia contains a loop of the sigmoid colon with no evidence of obstruction. Each hernia measures approximately 5 cm in diameter. There is an irregular hypodense lesion in the lateral segment of the left lobe of the liver along the lateral edge. This measures 29 x 35 mm in size. This could represent a hemangioma. Clinical correlation is suggested regarding history of a primary malignancy. Follow-up is recommended - Surgery consulted: Recommend elective evaluation of hernias for possible repair after stabilization and prioritization of acute anemia. No intervention in hospital Acute microcytic anemia 2/2 LGIB s/p 3u pRBC - s/p pRBC 03/14 with appropriate Hgb response follow by hayden - Per cardio, maintain Hgb betweek 8-9. Pt Hemodynamically stable - Awaiting endoscopy/colonoscopy and recommendations. Acute on Chronic CHF exacerbation - Currently denying CP, palpitations, SOB, diaphoresis - Echocardiogram 03/13: LV normal size. EF 55%. Mild hypokinesis in the apical anterior wall. Mild-mod TR RVSP 40mmHg, No pericardial effusion. RVSP 40mmHg CXR 03/13: Mild vascular congestion. NG in satisfactory position CXR 03/12: Mild cardiomegaly & moderate vascular congestion BNP 03/12: 6360 - Administered lasix post transfusion - Continue Nebivolol 5 mg (home medication) with holding parameters SBP<100, HR<60 - Continue metoprolol added by cardiology - Further plans for PCI with cardiology post GI workup - Measure I/Os, daily weights NSTEMI - Troponins: 03/12: 0.22, 03/13: 0.53. Troponin x 3 0.19. - Likely 2/2 demand ischemia from acute anemia - cardiology following - anticoagulation not indicated d/t suspected GIB History of CVA with R sided deficits - Continue with Phenytoin 100 mg Daily (home medication) - seizure precautions - avoiding antiplatelets/angicoagulants d/t acute GIB Hypertension - continue metoprolol 25mg bid with holding parameters DVT/GI prophylaxis: SCD/Protonix Case reviewed with attending physician, Dr. Cyndy Camacho PGY1 <Cyndy Pastor R - Last Filed: 03/15/19 16:57> Objective - Vital Signs/Intake and Output Vital Signs (last 24 hours): Temp Pulse Resp BP Pulse Ox 97.5 F L 71 16 126/69 99 03/15/19 14:11 03/15/19 14:11 03/15/19 14:11 03/15/19 14:11 03/15/19 14:11 Intake and Output: 03/15/19 03/15/19 06:59 18:59 Intake Total 2487 75 Output Total 2760 Balance -273 75 - Medications Medications: Current Medications Home Med (Home Med) 1 unit PO DAILY [facility] Last Admin: 03/15/19 11:28 Dose: Not Given Home Med (Home Med) 1 unit PO DAILY [facility] Last Admin: 03/15/19 11:28 Dose: Not Given Metoprolol Tartrate (Lopressor) 25 mg PO BID [facility] Last Admin: 03/15/19 11:28 Dose: Not Given Pantoprazole Sodium (Protonix Inj) 40 mg IVP BID [facility] Last Admin: 03/15/19 11:28 Dose: Not Given - Labs Labs: 03/15/19 06:10 03/15/19 06:10 PT 13.4 SECONDS (9.4-12.5) H 03/12/19 13:50 INR 1.21 03/12/19 13:50 APTT 26.2 Seconds (26.9-38.3) L 03/12/19 13:50 Attending/Attestation - Attestation I have personally seen and examined this patient.: Yes I have fully participated in the care of the patient.: Yes I have reviewed all pertinent clinical information, including history, physical exam and plan: Yes Notes (Text): Patient seen and examined by me with resident at approximately 9:30AM on 03/15/19. Case including HPI, physical exam, and assessment and plan discussed with resident. Agree with above with following additions/corrections. Patient is a 78 year old male with past medical history significant or hemorrhagic stroke with residual right sided weakness and hypertension that presented to the emergency room with right sided abdominal pain, right thigh pain, constipation, and difficulty urinating. Patient states he is feeling ok. Patient states that he was having red bloody stools all night. Still with some right lower abdominal pain. No nausea or vomiting. No shortness of breath. No headaches or dizziness. No fevers or chills. No chest pain or palpitations. Physical exam: General: Awake and alert lying in bed in no acute distress HEENT: Normocephalic, atraumatic. Extraocular muscles intact. Pupils equal and reactive, no scleral icterus. Oropharynx pink and moist. No pharyngeal erythema or exudate noted. Neck is supple. Cardiovascular: Regular rhythm. Normal S1 and S2. No murmurs, rubs, or gallops appreciated Pulmonary: Normal respiratory effort. No rhonchi, rales, or wheezing appreciated Gastrointestinal: Soft, nondistended. Mild right lower abdominal tenderness. Positive bowel sounds all 4 quadrants. No guarding. Musculoskeletal: No calf tenderness. No edema. Right upper extremity paresis Central nervous system: Awake and alert. RUE contraction and paresis from previous stroke. Right sided weakness, chronic from previous stroke. Dermatologic: Skin warm and dry. Assessment and plan: Patient is a 78 year old male with past medical history significant or hemorrhagic stroke with residual right sided weakness and hypertension that presented to the emergency room with right sided abdominal pain, right thigh pain, constipation, and difficulty urinating. 1. Abdominal pain. Bilateral inguinal hernias with partial obstruction secondary to right sided inguinal hernia. Surgical team recommendations appreciated. S/P NGT. NPO for EGD and colonscopy today. Hernias reducible, will need outpatient follow up for possible surgical repair. GI recommendations appreciated. CT abdomen and pelvis per radiologist showed bilateral inguinal hernias are seen; right-sided inguinal hernia contains a loop of small bowel, this appears to be producing partial obstruction; mildly dilated fluid-filled loops of small bowel are seen proximal to this hernia; left-sided hernia containing a loop of sigmoid colon with no evidence of obstruction; each hernia measures approximately 5 cm in diameter; there is an irregular hypodense lesion in the lateral segment of the left lobe of the lower along the lateral edge, this measures 29 x 35 mm in size, this could represent a meningioma. 2. Anemia. Possible GI bleed. Stool for occult blooding pending, per patient, had bloody bowel movements all night. S/P 2 units PRBCS 03/12/19. S/P 1 unit PRBC 03/14/19. H&H improved. GI recommendations appreciated. Continue IV protonix. For EGD and colonscopy today. 3. Elevated troponins. Likely secondary to demand ischemia. Cardiology recommendations appreciated. No anticoagulants or antiplatelets secondary to possible GI bleed. Continue Metoprolol. 2D echo per yarn wrapper showed ventricles normal size, borderline to mild concentric left ventricular hypertrophy, overall left ventricular function preserved, EF 55%, mild hypoki nesis in the apical anterior wall, trace aortic regurgitation, mitral regurgitation is mild, mild to moderate tricuspid regurgitation, trace pulmonic valvular regurgitation, no pericardial effusion, no vegetation or thrombus noted, grade 3 reversible restrictive diastolic dysfunction. 4. Shortness of breath. Vascular congestion on chest xray. Elevated BNP. Improving. 2d Echo as above. Likely secondary to diastolic dysfunction. S/P Lasix. Cardiology recommendations apppreciated. 5. Leukocytosis. Likely reactive. Resolved. Continue to monitor. 6. History of CVA with residual right sided weakness and RUE paralysis. No anticoagulants or antiplatelets secondary to possible GI bleed. Continue home phenytoin for seizure prophylaxis. 7. Hypertension. Continue Metoprolol 8. Constipation. Resolved. Continue to monitor Case discussed in detail with the patient and patient's family at bedside r egarding current diagnosis and treatment plan. All questions answered.
[2019-03-15] MEDS: Home Med 1 UNIT PO SCH (11:28)
[2019-03-15] MEDS: PHENYTOIN PO SCH (11:28)
[2019-03-15] MEDS ORDERED: Sodium Chloride 0.9% 1,000 ML IV SCH (12:00)
[2019-03-15] MEDS ORDERED: Propofol 10 mg/ml Inj (20 ML) ONE (12:10)
--- NOTE | 2019-03-15 18:20 | CP.PCM.PN ---
Subjective - Date & Time of Evaluation Date of Evaluation: 03/15/19 Time of Evaluation: 18:17 - Subjective Subjective: Patient s/p EGD and colonoscopy today with Dr. Dejesus showing gastritis, poor bowel preparation. Colonoscopy was incomplete due to inability to advance scope past ascending colon. Objective - Vital Signs/Intake and Output Vital Signs (last 24 hours): Temp Pulse Resp BP Pulse Ox 97.5 F L 69 16 117/66 99 03/15/19 14:11 03/15/19 17:42 03/15/19 14:11 03/15/19 17:42 03/15/19 14:11 Intake and Output: 03/15/19 03/15/19 06:59 18:59 Intake Total 2487 75 Output Total 2760 Balance -273 75 - Medications Medications: Current Medications Home Med (Home Med) 1 unit PO DAILY [facility] Last Admin: 03/15/19 11:28 Dose: Not Given Home Med (Home Med) 1 unit PO DAILY [facility] Last Admin: 03/15/19 11:28 Dose: Not Given Metoprolol Tartrate (Lopressor) 25 mg PO BID [facility] Last Admin: 03/15/19 17:42 Dose: 25 mg Pantoprazole Sodium (Protonix Inj) 40 mg IVP BID [facility] Last Admin: 03/15/19 17:42 Dose: 40 mg - Labs Labs: 03/15/19 06:10 03/15/19 06:10 PT 13.4 SECONDS (9.4-12.5) H 03/12/19 13:50 INR 1.21 03/12/19 13:50 APTT 26.2 Seconds (26.9-38.3) L 03/12/19 13:50 Assessment and Plan - Assessment and Plan (Free Text) Assessment: CVA HTN Seizure disorder NSTEMI Anemia s/p EGD and colonoscopy today with Dr. Dejesus showing gastritis, poor bowel preparation. Colonoscopy was incomplete to ascending colon due to inability to advance scope past ascending colon. Plan: - Diet as tolerated - H/H stable, continue to monitor - Follow up cardiology and surgical recommendations - Suggest additional outpatient follow up including potential capsule endoscopy for complete small bowel visualization to complete anemia workup. Patient would also require complete colonoscopy with more optimal bowel preparation. No further planned GI interventions, will sign off case. Please reconsult as necessary, thank you.
[2019-03-16 06:19] VITALS: O2SAT 94
[2019-03-16 07:15] LABS: BASO # 0.03 K/mm3 (0.0-2.0); BASO % 0.5 % (0.0-3.0); EOS # 0.4 (0.0-0.7); HEMOGLOBIN 8.8 g/dL (14.0-18.0); LYMPH # 1.7 (1.2-3.4); LYMPH % 27.4 % (22.0-35.0); MEAN CELL VOLUME 80.5 fl (80.0-105.0); MEAN CORPUSCULAR HEMOGLOBIN 23.2 pg (25.0-35.0); MEAN CORPUSCULAR HGB CONC 28.8 g/dl (31.0-37.0); MEAN PLATELET VOLUME 9.5 fl (7.0-11.0); MONO # 0.6 (0.1-0.6); MONO % 9.2 % (1.0-6.0); RBC 3.8 10^6/uL (3.5-6.1); RED CELL DISTRIBUTION WIDTH 20.4 % (11.5-14.5); WHITE BLOOD COUNT 6.3 10^3/uL (4.5-11.0)
[2019-03-16 07:34] LABS: BLOOD UREA NITROGEN 8 mg/dL (7-21); CALCIUM 8.1 mg/dL (8.4-10.5); GFR NON-AFRICAN AMERICAN > 60
[2019-03-16] MEDS ORDERED: Ergocalciferol 50,000 Intl Units Cap PO SCH (09:00)
[2019-03-16] MEDS: Home Med 1 UNIT PO SCH (10:58)
[2019-03-16] MEDS: PHENYTOIN PO SCH (10:58)
[2019-03-16] MEDS ORDERED: PHENYTOIN 100 MG PO SCH (12:05)
--- NOTE | 2019-03-16 12:37 | PN ---
DATE: 03/16/2019 CARDIOLOGY FOLLOWUP SUBJECTIVE: The patient is without complaints. OBJECTIVE: VITAL SIGNS: Stable. NECK: Negative JVD. LUNGS: Without rales. HEART: S1 and S2. EXTREMITIES: Without edema. LABORATORY DATA: Hemoglobin is 8.8. IMPRESSION: 1. Gastrointestinal bleed. 2. Marked anemia. 3. Non-ST elevation myocardial infarction secondary to demand due to his low hemoglobin. PLAN: Given these findings, once his GI workup is complete, the patient should undergo a stress test, which can be done as an outpatient and I have discussed with the family. They are from [place] and this can be done in [place] as an outpatient. We will discontinue telemetry today. Yohan Espinosa MD
[2019-03-16 12:51] VITALS: BP 117/63; PULSE 70; RESP 18; TEMP 97.7
--- NOTE | 2019-03-16 15:42 | CP.PCM.DIS ---
<Cristóbal Camacho - Last Filed: 03/17/19 11:57> Provider - Provider Date of Admission: 03/12/19 15:44 Attending physician: Cyndy Pastor DO Consults: 03/12/19 17:13 Consult [Physician Consult] Routine Comment: Consulting Provider: Minoo Pastor Consulting Physician: Minoo Pastor Reason for Consult: abdominal pain, constipation, obstruction 03/12/19 17:19 Consult [Physician Consult] Routine Comment: Consulting Provider: Yohan Espinosa Consulting Physician: Yohan Espinosa Reason for Consult: htn, anemia, chf like picture Time Spent in preparation of Discharge (in minutes): 45 Diagnosis - Discharge Diagnosis (1) Acute anemia Status: Acute (2) Blood transfusion during current hospitalization Status: Acute (3) Bilateral inguinal hernia Status: Acute (4) Hemorrhoids Status: Acute (5) History of CVA with residual deficit Status: Acute Hospital Course - Lab Results Lab Results: Micro Results 03/12/19 17:00 Blood Blood Culture - Preliminary NO GROWTH AFTER 3 DAYS 03/12/19 16:30 Blood Blood Culture - Preliminary NO GROWTH AFTER 3 DAYS 03/12/19 14:30 Urine Random Urine Culture - Final No Growth (<1,000 CFU/ML) Most Recent Lab Values WBC 6.3 10^3/uL (4.5-11.0) 03/16/19 07:00 RBC 3.80 10^6/uL (3.5-6.1) 03/16/19 07:00 Hgb 8.8 g/dL (14.0-18.0) L 03/16/19 07:00 Hct 30.6 % (42.0-52.0) L 03/16/19 07:00 MCV 80.5 fl (80.0-105.0) 03/16/19 07:00 MCH 23.2 pg (25.0-35.0) L 03/16/19 07:00 MCHC 28.8 g/dl (31.0-37.0) L 03/16/19 07:00 RDW 20.4 % (11.5-14.5) H 03/16/19 07:00 Plt Count 279 10^3/uL (120.0-450.0) 03/16/19 07:00 MPV 9.5 fl (7.0-11.0) 03/16/19 07:00 Neut % (Auto) 55.9 % (50.0-68.0) 03/16/19 07:00 Lymph % (Auto) 27.4 % (22.0-35.0) 03/16/19 07:00 [place] % (Auto) 9.2 % (1.0-6.0) H 03/16/19 07:00 Eos % (Auto) 7.0 % (1.5-5.0) H 03/16/19 07:00 Baso % (Auto) 0.5 % (0.0-3.0) 03/16/19 07:00 Lymph # (Auto) 1.7 (1.2-3.4) 03/16/19 07:00 [place] # (Auto) 0.6 (0.1-0.6) 03/16/19 07:00 Eos # (Auto) 0.4 (0.0-0.7) 03/16/19 07:00 Baso # (Auto) 0.03 K/mm3 (0.0-2.0) 03/16/19 07:00 Absolute Neuts (auto) 3.54 (1.4-6.5) 03/16/19 07:00 PT 13.4 SECONDS (9.4-12.5) H 03/12/19 13:50 INR 1.21 03/12/19 13:50 APTT 26.2 Seconds (26.9-38.3) L 03/12/19 13:50 Sodium 139 mmol/L (132-148) 03/16/19 07:00 Potassium 4.4 mmol/L (3.6-5.0) 03/16/19 07:00 Chloride 106 mmol/L (98-107) 03/16/19 07:00 Carbon Dioxide 26 mmol/L (21-33) 03/16/19 07:00 Anion Gap 12 (10-20) 03/16/19 07:00 BUN 8 mg/dL (7-21) 03/16/19 07:00 Creatinine 0.6 mg/dl (0.8-1.5) L 03/16/19 07:00 Est GFR ( Amer) > 60 03/16/19 07:00 Est GFR (Non-Af Amer) > 60 03/16/19 07:00 Random Glucose 90 mg/dL (70-110) 03/16/19 07:00 Hemoglobin A1c 5.5 % (4.2-6.5) 03/13/19 08:00 Calcium 8.1 mg/dL (8.4-10.5) L 03/16/19 07:00 Magnesium 2.6 mg/dL (1.7-2.2) H 03/15/19 06:10 Iron 46 ug/dL (45-180) 03/13/19 12:03 TIBC 393 ug/dL (261-462) 03/13/19 12:03 % Saturation 12 % (20-55) L 03/13/19 12:03 Transferrin 276.31 mg/dL (206-381) 03/13/19 12:03 Ferritin 13.1 ng/mL 03/13/19 12:03 Total Bilirubin 0.4 mg/dL (0.2-1.3) 03/15/19 06:10 AST 20 U/L (17-59) 03/15/19 06:10 ALT 14 U/L (7-56) 03/15/19 06:10 Alkaline Phosphatase 82 U/L (38-126) 03/15/19 06:10 Troponin I 0.19 ng/mL H* D 03/14/19 06:00 NT-Pro-B Natriuret Pep 6360 pg/mL (0-450) H 03/12/19 13:50 Total Protein 6.8 g/dL (5.8-8.3) 03/15/19 06:10 Albumin 3.4 g/dL (3.0-4.8) 03/15/19 06:10 Globulin 3.4 gm/dL 03/15/19 06:10 Albumin/Globulin Ratio 1.0 (1.1-1.8) L 03/15/19 06:10 Triglycerides 90 mg/dL (35-160) 03/13/19 08:00 Cholesterol 130 mg/dL (130-200) 03/13/19 08:00 LDL Cholesterol Direct 85 mg/dL (0-129) 03/13/19 08:00 HDL Cholesterol 30 mg/dL (29-60) 03/13/19 08:00 Amylase 41 U/L (35-125) 03/12/19 13:50 Lipase 112 U/L (23-300) 03/12/19 13:50 25-OH Vitamin D Total 13.9 NG/ML (30.0-100.0) L 03/15/19 15:00 Procalcitonin < 0.05 NG/ML (0.19-0.49) L 03/12/19 18:00 TSH 3rd Generation 2.75 mIU/mL (0.46-4.68) 03/13/19 08:00 Urine Color Yellow (YELLOW) 03/12/19 14:30 Urine Appearance Clear (CLEAR) 03/12/19 14:30 Urine pH 6.0 (4.7-8.0) 03/12/19 14:30 Ur Specific [place] 1.025 (1.005-1.035) 03/12/19 14:30 Urine Protein Negative mg/dL (<30 mg/dL) 03/12/19 14:30 Urine Glucose (UA) Negative mg/dL (NEGATIVE) 03/12/19 14:30 Urine Ketones Negative mg/dL (NEGATIVE) 03/12/19 14:30 Urine Blood Negative (NEGATIVE) 03/12/19 14:30 Urine Nitrate Negative (NEGATIVE) 03/12/19 14:30 Urine Bilirubin Negative (NEGATIVE) 03/12/19 14:30 Urine Urobilinogen 0.2 E.U./dL (<1 E.U./dL) 03/12/19 14:30 Ur Leukocyte Esterase Negative Mandeep/uL (NEGATIVE) 03/12/19 14:30 Hepatitis A IgM Ab Negative (NEGATIVE) 03/13/19 03:35 Hep Bs Antigen Negative (NEGATIVE) 03/13/19 03:35 Hep B Core IgM Ab Negative (NEGATIVE) 03/13/19 03:35 Hepatitis C Antibody Negative (NEGATIVE) 03/13/19 03:35 Blood Type A POSITIVE 03/12/19 14:30 Blood Type Confirm A POSITIVE 03/12/19 15:20 Antibody Screen Negative 03/12/19 14:30 Crossmatch See Detail 03/12/19 14:30 BBK History Checked No verified bt 03/12/19 14:30 - Hospital Course Hospital Course: Upon Admission: 78 year old Shorty speaking male with a past medical history of 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 He is accompanied by his daughter in law who provides most of the chief complaint and past medical history. The pain is in the right side of his abdomen is intermittent, scaled 7/10 in severity, crampy in nature, not associated with vomiting, nausea, or diarrhea; ongoing since his constipation. The patient denied having any fever, chills, shortness of breath, exposure to any sick contact. Also, he has had difficulty urinating in the past 24 hours. He denies dysuria and felt reliefed when straight cathed in the ED. He does report having bloody bowel movements 2 weeks ago that resolved spontaneously. He denied feeling any palpitations, shortness or breath, or malaise. He can only walk with the assistance of one person + walker/cane. He lives with his daughter and son that that reside in [place] and [place], respectively. Hospital Course: Pt was found to have Hgb of 5.2 on admission. He also has elevated troponins of 0.22, 0.53, 0.19. Pt was transfused 2u pRBC with appropriate Hgb response to 8.8. She was evaluated by GI for acute GIB, Cardiology for NSTEMI and general surgery for b/l inguinal hernia. Pt underwent colonoscopy/endoscopy (results shown below). No acute bleed was found in the examined regions, however was incomplete to ascneding colon. GI recommended potential outpatient capsule endoscopy and complete colonoscopy with more optimal bowel prep. GI had no further interventions and signed off case. Cardiology had reviewed echo & evaluated patient, and recommended outpatient stress test without need for cardiac cath. General surgery recommended outpatient evaluation for hernia repair. Pt received lasix for SOB. Upon Discharge Pt is feeling much better today. Pt was had walked with cane, without unsteadiness or gait disturbance, however reported feeling tired. His VS & labs stable. He is to be discharged home. He was educated on medications compliance, outpatient followup and to return to ED if symptoms returned or he experienced new symptoms. Medications upon discharge: Metoprolol Tartarate 25mg bid Ergocalciferol 50,000 IU Q7d Tamsulosin 0.1mg qd Imaging/Exams: Chest Xray: -Mild cardiomegaly and moderate vascular congestion. CT Abdomen/Pelvis: -Bilateral inguinal hernias are seen. The right-sided inguinal hernia contains a loop of small bowel. This appears to be producing partial obstruction. Mil dly dilated fluid-filled loops of small bowel are seen proximal to this hernia. The left-sided hernia contains a loop of the sigmoid colon with no evidence of obstruction. Each hernia measures approximately 5 cm in diameter. -There is an irregular hypodense lesion in the lateral segment of the left lobe of the liver along the lateral edge. This measures 29 x 35 mm in size. This could represent a hemangioma. Clinical correlation is suggested regarding history of a primary malignancy. Follow-up is recommended Colonoscopy Impression: - Hemorrhoids found on perianal exam - The entire examined colon up to the ascendin colon was normal. No active bleeding noted. - Large left inguinal hernia, small right inguinal hernia Recommendations: - Can consider capsule endoscopy - Resume cardiac diet - Repeat colonoscopy because the bowel preparation was poor Endoscopy Impression: - Normal Esophagus - Gastritis - Normal examined duodenum - No specimens collected Echocardiogram 03/13: LV normal size. EF 55%. Mild hypokinesis in the apical anterior wall. Mild-mod TR RVSP 40mmHg, No pericardial effusion. RVSP 40mmHg Discharge Exam - Head Exam Head Exam: ATRAUMATIC, NORMAL INSPECTION - Eye Exam Eye Exam: EOMI, Normal appearance - ENT Exam ENT Exam: Mucous Membranes Moist, Normal Exam - Neck Exam Neck exam: Normal Inspection - Respiratory Exam Respiratory Exam: NORMAL BREATHING PATTERN, UNREMARKABLE - Cardiovascular Exam Cardiovascular Exam: REGULAR RHYTHM, +S1, +S2 - GI/Abdominal Exam GI & Abdominal Exam: Soft, Unremarkable - Extremities Exam Extremities exam: normal inspection - Back Exam Back exam: NORMAL INSPECTION - Neurological Exam Neurological exam: Alert, Normal Gait, Oriented x3 - Psychiatric Exam Psychiatric exam: Normal Affect, Normal Mood - Skin Skin Exam: Dry, Intact, Warm Discharge Plan - Discharge Medications Prescriptions: Ergocalciferol [Drisdol 50,000 Intl Units Cap] 1 cap PO Q7D #3 cap Metoprolol Tartrate [Lopressor] 25 mg PO BID #60 tab Tamsulosin [Flomax] 0.4 mg PO DAILY #14 cap - Follow Up Plan Condition: GOOD Disposition: HOME/ ROUTINE Instructions: Hemorrhoids (DC), Pneumonia, Adult (DC), Open Herniorrhaphy (DC), Laparoscopic Herniorrhaphy (DC), Inguinal Hernia (DC) Additional Instructions: Please follow up with your primary care doctor within 3-5 days of discharge. Please ask for a referral for a hair dryer, lending consultant & general surgeon Please follow up with a lending consultant (stomach doctor) within 1 week of discharge. You will need a capsule endoscopy and repeat colonoscopy Please follow up with a hair dryer (heart doctor) within 1 week of discharge. You will need an outpatient stress test. Please follow up with a general surgeon within 1 week of discharge. Please discuss an elective evaluation of hernias for possible repair. Please STOP taking the following medication at home: Nebivilol 5mg Please START the following medications: Metoprolol 25mg. Take 1 tablet by mouth daily Protonix 40mg. Take 1 tablet by mouth daily Ergocalciferol 50,000 IU. Please take 1 tablet by mouth every 7 days. You have received the first dose already in the hospital on 03/16/19. Please take the next dose on 03/23/19 and take it every 7 days. Tamsulosin 0.4mg. Please take 1 tablet daily Please get any refills needed for your medications from your primary care doctor. Please discuss your blood pressure with your primary care doctor during your visit. Please continue with puree diet at home. Follow up with [facility] in [place] for outpatient physical therapy. If your symptoms return, or you experience new symptoms, please go to the nearest emergency room. Referrals: Toni Guevara MD [Staff Provider] - Minoo Pastor MD [Staff Provider] - Yohan Espinosa MD [Staff Provider] - <Cyndy Pastor - Last Filed: 03/17/19 15:06> Provider - Provider Date of Admission: 03/12/19 15:44 Attending physician: Cyndy Pastor DO Consults: 03/12/19 17:13 Consult [Physician Consult] Routine Comment: Consulting Provider: Minoo Pastor Consulting Physician: Minoo Pastor Reason for Consult: abdominal pain, constipation, obstruction 03/12/19 17:19 Consult [Physician Consult] Routine Comment: Consulting Provider: Yohan Espinosa Consulting Physician: Yohan Espinosa Reason for Consult: htn, anemia, chf like picture Hospital Course - Lab Results Lab Results: Micro Results 03/12/19 17:00 Blood Blood Culture - Preliminary NO GROWTH AFTER 4 DAYS 03/12/19 16:30 Blood Blood Culture - Preliminary NO GROWTH AFTER 4 DAYS 03/12/19 14:30 Urine Random Urine Culture - Final No Growth (<1,000 CFU/ML) Most Recent Lab Values WBC 6.3 10^3/uL (4.5-11.0) 03/16/19 07:00 RBC 3.80 10^6/uL (3.5-6.1) 03/16/19 07:00 Hgb 8.8 g/dL (14.0-18.0) L 03/16/19 07:00 Hct 30.6 % (42.0-52.0) L 03/16/19 07:00 MCV 80.5 fl (80.0-105.0) 03/16/19 07:00 MCH 23.2 pg (25.0-35.0) L 03/16/19 07:00 MCHC 28.8 g/dl (31.0-37.0) L 03/16/19 07:00 RDW 20.4 % (11.5-14.5) H 03/16/19 07:00 Plt Count 279 10^3/uL (120.0-450.0) 03/16/19 07:00 MPV 9.5 fl (7.0-11.0) 03/16/19 07:00 Neut % (Auto) 55.9 % (50.0-68.0) 03/16/19 07:00 Lymph % (Auto) 27.4 % (22.0-35.0) 03/16/19 07:00 [place] % (Auto) 9.2 % (1.0-6.0) H 03/16/19 07:00 Eos % (Auto) 7.0 % (1.5-5.0) H 03/16/19 07:00 Baso % (Auto) 0.5 % (0.0-3.0) 03/16/19 07:00 Lymph # (Auto) 1.7 (1.2-3.4) 03/16/19 07:00 [place] # (Auto) 0.6 (0.1-0.6) 03/16/19 07:00 Eos # (Auto) 0.4 (0.0-0.7) 03/16/19 07:00 Baso # (Auto) 0.03 K/mm3 (0.0-2.0) 03/16/19 07:00 Absolute Neuts (auto) 3.54 (1.4-6.5) 03/16/19 07:00 PT 13.4 SECONDS (9.4-12.5) H 03/12/19 13:50 INR 1.21 03/12/19 13:50 APTT 26.2 Seconds (26.9-38.3) L 03/12/19 13:50 Sodium 139 mmol/L (132-148) 03/16/19 07:00 Potassium 4.4 mmol/L (3.6-5.0) 03/16/19 07:00 Chloride 106 mmol/L (98-107) 03/16/19 07:00 Carbon Dioxide 26 mmol/L (21-33) 03/16/19 07:00 Anion Gap 12 (10-20) 03/16/19 07:00 BUN 8 mg/dL (7-21) 03/16/19 07:00 Creatinine 0.6 mg/dl (0.8-1.5) L 03/16/19 07:00 Est GFR ( Amer) > 60 03/16/19 07:00 Est GFR (Non-Af Amer) > 60 03/16/19 07:00 Random Glucose 90 mg/dL (70-110) 03/16/19 07:00 Hemoglobin A1c 5.5 % (4.2-6.5) 03/13/19 08:00 Calcium 8.1 mg/dL (8.4-10.5) L 03/16/19 07:00 Magnesium 2.6 mg/dL (1.7-2.2) H 03/15/19 06:10 Iron 46 ug/dL (45-180) 03/13/19 12:03 TIBC 393 ug/dL (261-462) 03/13/19 12:03 % Saturation 12 % (20-55) L 03/13/19 12:03 Transferrin 276.31 mg/dL (206-381) 03/13/19 12:03 Ferritin 13.1 ng/mL 03/13/19 12:03 Total Bilirubin 0.4 mg/dL (0.2-1.3) 03/15/19 06:10 AST 20 U/L (17-59) 03/15/19 06:10 ALT 14 U/L (7-56) 03/15/19 06:10 Alkaline Phosphatase 82 U/L (38-126) 03/15/19 06:10 Troponin I 0.19 ng/mL H* D 03/14/19 06:00 NT-Pro-B Natriuret Pep 6360 pg/mL (0-450) H 03/12/19 13:50 Total Protein 6.8 g/dL (5.8-8.3) 03/15/19 06:10 Albumin 3.4 g/dL (3.0-4.8) 03/15/19 06:10 Globulin 3.4 gm/dL 03/15/19 06:10 Albumin/Globulin Ratio 1.0 (1.1-1.8) L 03/15/19 06:10 Triglycerides 90 mg/dL (35-160) 03/13/19 08:00 Cholesterol 130 mg/dL (130-200) 03/13/19 08:00 LDL Cholesterol Direct 85 mg/dL (0-129) 03/13/19 08:00 HDL Cholesterol 30 mg/dL (29-60) 03/13/19 08:00 Amylase 41 U/L (35-125) 03/12/19 13:50 Lipase 112 U/L (23-300) 03/12/19 13:50 25-OH Vitamin D Total 13.9 NG/ML (30.0-100.0) L 03/15/19 15:00 Procalcitonin < 0.05 NG/ML (0.19-0.49) L 03/12/19 18:00 TSH 3rd Generation 2.75 mIU/mL (0.46-4.68) 03/13/19 08:00 Urine Color Yellow (YELLOW) 03/12/19 14:30 Urine Appearance Clear (CLEAR) 03/12/19 14:30 Urine pH 6.0 (4.7-8.0) 03/12/19 14:30 Ur Specific [place] 1.025 (1.005-1.035) 03/12/19 14:30 Urine Protein Negative mg/dL (<30 mg/dL) 03/12/19 14:30 Urine Glucose (UA) Negative mg/dL (NEGATIVE) 03/12/19 14:30 Urine Ketones Negative mg/dL (NEGATIVE) 03/12/19 14:30 Urine Blood Negative (NEGATIVE) 03/12/19 14:30 Urine Nitrate Negative (NEGATIVE) 03/12/19 14:30 Urine Bilirubin Negative (NEGATIVE) 03/12/19 14:30 Urine Urobilinogen 0.2 E.U./dL (<1 E.U./dL) 03/12/19 14:30 Ur Leukocyte Esterase Negative Mandeep/uL (NEGATIVE) 03/12/19 14:30 Hepatitis A IgM Ab Negative (NEGATIVE) 03/13/19 03:35 Hep Bs Antigen Negative (NEGATIVE) 03/13/19 03:35 Hep B Core IgM Ab Negative (NEGATIVE) 03/13/19 03:35 Hepatitis C Antibody Negative (NEGATIVE) 03/13/19 03:35 Blood Type A POSITIVE 03/12/19 14:30 Blood Type Confirm A POSITIVE 03/12/19 15:20 Antibody Screen Negative 03/12/19 14:30 Crossmatch See Detail 03/12/19 14:30 BBK History Checked No verified bt 03/12/19 14:30 Attending/Attestation - Attestation I have personally seen and examined this patient.: Yes I have fully participated in the care of the patient.: Yes I have reviewed all pertinent clinical information, including history, physical exam and plan: Yes Notes (Text): Please note this DC summary is for 03/16/19 Patient seen and examined by me with resident at approximately 9:35AM and prior to discharge on 03/16/19. Case including discharge plan discussed with resident. Agree with above with following additions/corrections. Patient is a 78 year old male with past medical history significant or hemorrhagic stroke with residual right sided weakness and hypertension that presented to the emergency room with right sided abdominal pain, right thigh pain, constipation, and difficulty urinating. Please see H&P for full details. Patient was found to have abdominal pain, bilateral inguinal hernias with partial obstruction secondary to right-sided inguinal hernia, anemia, possible GI bleed, elevated troponins, shortness of breath, vascular congestion, diastolic CHF, leukocytosis, history of CVA and residual right-sided weakness, hypertension, and constipation. Patient was seen by surgical team who recommended outpatient follow-up for possible surgical repair of inguinal hernias. NG tube was initially placed. Patient was made nothing by mouth. Symptoms improved and NG tube was removed. Patient was placed on liquid diet which he tolerated well. CT abdomen and pelvis per radiologist showed bilateral inguinal hernias are seen; right-sided inguinal hernia contains a loop of small bowel, this appears to be producing partial obstruction; mildly dilated fluid- filled loops of small bowel are seen proximal to this hernia; left-sided hernia containing a loop of sigmoid colon with no evidence of obstruction; each hernia measures approximately 5 cm in diameter; there is an irregular hypodense lesion in the lateral segment of the left lobe of the lower along the lateral edge, this measures 29 x 35 mm in size, this could represent a meningioma. Patient was also found to have anemia with possible GI bleed. Patient complained of black stools. Patient received 2 units packed red blood cells on 03/12/2019. Patient received 1 unit packed red blood cells on 03/14/2019. H&H stabilized. Patient had EGD and colonoscopy. Per lending consultant EGD showed gastritis. Patient had poor bowel prep and colonoscopy was incomplete descending colon due to inability advance scope passed descending colon. Outpatient potential capsule endoscopy and repeat colonoscopy was recommended. Patient was continued on PPI. Patient was also found have elevated troponins. Patient was seen by hair dryer and it was determined that this was likely secondary to demand ischemia. Patient was not a candidate for anticoagulants or antiplatelet secondary to the anemia. Patient was continued on metoprolol. 2D echo per hair dryer showed ventricles normal size, borderline to mild concentric left ventricular hypertrophy, overall left ventricular function preserved, EF 55%, mild hypokinesis in the apical anterior wall, trace aortic regurgitation, mitral regurgitation is mild, mild to moderate tricuspid regurgitation, trace pulmonic valvular regurgitation, no pericardial effusion, no vegetation or thrombus noted, grade 3 reversible restrictive diastolic dysfunction. Patient did initially have some shortness of breath. Chest x-ray per radiologist showed vascular congestion. Patient also had an elevated BNP. Patient was treated with Lasix. Repeat chest x-ray showed mild vascular congestion. Shortness of breath resolved. Per hair dryer patient to have an outpatient stress test. Patient was also found have leukocytosis which was likely reactive and resolved. Patient was also with right-sided weakness and hemiparesis secondary to history of CVA. Aspirin initially starte and then held secondary to possible GI bleed. She was continued on home phenytoin for seizure prophylaxis. Patient also had constipation which resolved. Patient was feeling much better. Patient was cleared for discharge by all consultants. Patient was discharged home. On day of discharge, patient stated he was he feeling much better. Abdominal pain improved. No more bloody bowel movements. Patient denied chest pain or palpitations. No shortness of breath. No nausea, vomiting, or abdominal pain. Patient was tolerating diet well. No headaches or dizziness. No fevers or chills. No dysuria or burning with urination. Physical exam: General: Awake and alert lying in bed in no acute distress HEENT: Normocephalic, atraumatic. Extraocular muscles intact. Pupils equal and reactive, no scleral icterus. Oropharynx pink and moist. No pharyngeal erythema or exudate noted. Neck is supple. Cardiovascular: Regular rhythm. Normal S1 and S2. No murmurs, rubs, or gallops appreciated Pulmonary: Normal respiratory effort. No rhonchi, rales, or wheezing appreciated Gastrointestinal: Soft, nondistended. No abdominal tenderness. Positive bowel sounds all 4 quadrants. No guarding. Musculoskeletal: No calf tenderness. No edema. Right upper extremity paresis Central nervous system: Awake and alert. RUE contraction and paresis from previous stroke. Right sided weakness, chronic from previous stroke. Dermatologic: Skin warm and dry. Please see chart for full details. Follow up instructions: Patient to follow up with primary care doctor within 3-5 days. Patient to follow up with lending consultant within one week. Patient to follow-up with hair dryer within 1 week. Patient to follow up with surgeon within one week. Patient to take medications as prescribed. All instructions explained to the patient and patient's family at bedside in detail. They all understand and agree to all instructions. Written instructions also given. Time spent in discharging the patient including chart review, medication reconciliation, discussion with the patient, outside medical sales representative, consultants, and nursing staff was approximately 45 minutes.
== END 2019-03-16 19:36 | disposition home or self-care (01) | DRG 663 ==
LOC: ED 12:49 → ERH 15:44 → 2RNO 18:16
PROVIDERS: ADMIT Internal Medicine; ATTEND Hospitalist
PROC: 30233N1 Transfusion of Nonautologous Red Blood Cells into Peripheral Vein, Percutaneous Approach (ICD-10-PCS; principal; 2019-03-12)
PROC: 0DJD8ZZ Inspection of Lower Intestinal Tract, Via Natural or Artificial Opening Endoscopic (ICD-10-PCS; 2019-03-15)
PROC: 0DJ08ZZ Inspection of Upper Intestinal Tract, Via Natural or Artificial Opening Endoscopic (ICD-10-PCS; 2019-03-15 11:30)
DX: D50.9 Iron deficiency anemia, unspecified (principal); I21.4 Non-ST elevation (NSTEMI) myocardial infarction; I11.0 Hypertensive heart disease with heart failure; I50.32 Chronic diastolic (congestive) heart failure; K40.20 Bilateral inguinal hernia, without obstruction or gangrene, not specified as recurrent; I69.351 Hemiplegia and hemiparesis following cerebral infarction affecting right dominant side; I25.10 Atherosclerotic heart disease of native coronary artery without angina pectoris; E11.9 Type 2 diabetes mellitus without complications; G40.909 Epilepsy, unspecified, not intractable, without status epilepticus; K29.70 Gastritis, unspecified, without bleeding; K59.00 Constipation, unspecified; K64.8 Other hemorrhoids; Z87.891 Personal history of nicotine dependence